=== PATIENT | male | born 1955 ===

== ENCOUNTER 2020-04-18 14:16 | Emergency (ER) | payer OTHER ==
--- OUTSIDE RECORDS SUMMARY | 2020-04-18 14:20 | XMS REPORT | Clinical Summary ---
:1955 Author Organization [facility] Address [address] [place] [id number] Care Team Providers Name Role Phone MD Parish Primary Care Provider Allergies Active Allergy Reactions Severity Noted Date Comments Iodine Hives 04/02/2016 Iodine IV it is ok if given with benadryl. Medications Medication Sig Dispensed Refills Start End Date Status Date lisinopril Take 5 mg by 0 Active (PRINIVIL,ZESTRIL) 5 mouth daily. mg tablet gabapentin Take 200 mg 0 Active (NEURONTIN) 100 mg by mouth capsule nightly. empagliflozin Take 10 mg by 0 Ac tive (JARDIANCE) 10 mg mouth daily. tablet tablet metoprolol tartrate Take 75 mg by 0 Active 75 mg tablet mouth 2 (two) times a day. pantoprazole Take 40 mg by 0 Act coretta (PROTONIX) 40 MG EC mouth daily. tablet aspirin 325 MG tablet Take 325 mg 0 Active by mouth daily. evolocumab (REPATHA) Inject 140 mg 0 Active 140 mg/mL syringe under the injection skin every 14 (fourteen) days. Every other Tuesday. Next dose due 02/29/20 ondansetron (ZOFRAN) Take 1 tablet 30 tablet 3 Active 4 MG tablet (4 mg total) 0 by mouth every 8 (eight) hours as needed for nausea or vomiting. spironolactone Take 50 mg by 0 A ctive (ALDACTONE) 50 MG mouth daily. tablet icosapent ethyL Take 1 g by 0 Ac tive (VASCEPA) 1 gram mouth 2 (two) capsule times a day. furosemide (LASIX) 40 Take 40 mg by 0 Active mg tablet mouth daily. b complex vitamins Take 1 tablet 0 Active tablet by mouth daily. lactulose 20 gram/30 Take 15 mL by 0 Active mL solution mouth 2 (two) times a day. semaglutide (OZEMPIC) Inject 0.5 mg 0 11/23 06/14 Discontinued 0.25 mg or 0.5 mg(2 under the 20 mg/1.5 mL) pen skin every 7 injector days. Tuesday furosemide (LASIX) 40 Take 20 mg by 0 07/12 Discontinued mg tablet mouth daily. 20 (Patien t Reported) insulin degludec Inject 68 0 12/05/19 Dis continued (TRESIBA FLEXTOUCH Units under 20 U-100) 100 unit/mL (3 the skin mL) insulin pen nightly. b complex vitamins (B Take 2 0 03/27/20 Discontinued COMPLEX 1) tablet tablets by 20 ( Patient mouth daily. Reporte d) metFORMIN XR Take 500 mg 0 12/05/19 Disco ntinued (GLUCOPHAGE-XR) 500 by mouth 2 20 mg 24 hr tablet (two) times a day. pitavastatin calcium Take 4 mg by 0 Discontinued (LIVALO) 4 mg tablet mouth daily. 20 buPROPion XL Take 150 mg 0 03/27/20 Disco ntinued (WELLBUTRIN XL) 150 by mouth 20 (Patient MG 24 hr tablet nightly. Repo rted) iron,carbon,gluc-FA-B Take 1 tablet 0 11/23 06/14 Discontinued 12-C-dss (FERRALET 90 by mouth 20 DUAL-IRON DELIVERY) nightly. 90-1-12-50 va-br-hgk-mg tablet icosapent ethyL Take 2 g by 0 03/27/20 Di scontinued (Vascepa) 1 gram mouth 2 (two) 20 (Patient capsule times a day. Reporte d) gdgpw-[id number]-tra-epa-fish Take by mouth 0 01/25 05/14 Discontinued oil 1,000-1,400 mg 2 (two) times 20 (Med List capsule,delayed a day. Joselin nup) release(DR/EC) traMADoL (ULTRAM) 50 Take 1 tablet 20 tablet 0 01/08 mg tabletIndications: (50 mg total) 0 20 acute pain by mouth every 6 (six) hours as needed for moderate pain for up to 20 doses .acute pain. ondansetron (Zofran) Take 1 tablet 20 tablet 0 02/22 Discontinued 4 MG tablet (4 mg total) 0 20 (Med List by mouth Cleanup) every 8 (eight) hours as needed for nausea or vomiting for up to 20 doses. ondansetron (ZOFRAN) Take 4 mg by 0 Discontinued 4 MG tablet mouth every 8 20 (Reo rder) (eight) hours as needed for nausea or vomiting. prochlorperazine Take 1 tablet 30 tablet 3 04/11/20 (COMPAZINE) 5 MG (5 mg total) 0 20 tablet by mouth every 6 (six) hours as needed for nausea or vomiting for up to 30 days. nivolumab (OPDIVO) Infuse 48 mL 48 mL 0 04/11/20 240 mg/24 mL solution (480 mg 0 20 total) into a venous catheter once for 1 dose. Active Problems Problem Noted Date Hepatocellular carcinoma 03/06/2020 Disorder of liver 01/01/2020 Other cirrhosis of liver 12/05/2019 Hepatoma 12/05/2019 Bleeding internal hemorrhoids 03/01/2019 S/P AVR 06/21/2018 Acute bacterial endocarditis 06/21/2018 Resolved Problems Problem Noted Date Resolved Date Hepatic encephalopathy 02/23/2020 02/25/2020 Encounters Date Type Specialty Care Team Description 04/16[facility]2020 [facility] 04/16/2020 Telephone Oncology Anastacia Jain RN 04/15/2020 Telephone Oncology Jean-Claude Mac MD 04/11/2020 Telephone Oncology Jean-Claude Mac MD 04/09/2020 Telephone Oncology Lucila Lua 04/08/2020 Oncology Oncology Gerri Rivera RN 04/08/2020 Telephone Oncology Jean-Claude Mac MD 04/04/2020 Orders Only Oncology Samia Marcano Cornelio 04/04/2020 Telephone Oncology Lucila Lua 04/03/2020 Telephone Oncology Lucila Lua N 04/01/2020 Telephone Oncology Lucila Lua 03/27/2020 Infusion Oncology Jean-Claude Mac Hepatocellular MD carcinoma (HCC) (Primary Dx) 03/27/2020 Oncology Oncology Champriccardoe, Hepatocellular Survivorship Elis, JAELYN carcinoma (HCC) (Primary Dx) 03/27/2020 Telephone Oncology Jean-Claude Mac MD 03/27/2020 Travel 03/27/2020 Orders Only Oncology Chintapenta, Samia, [facility] 03/26/2020 Telephone Oncology Chanell, Lucila N 03/25/2020 Telephone Oncology Chanell, Lucila N 03/25/2020 Telephone Oncology Jean-Claude Mac MD 03/24/2020 Telephone Oncology Anastacia Jain RN 03/18/2020 Orders Only Oncology Jean-Claude Mac MD 03/17/2020 Orders Only Oncology Jean-Claude Mac MD 03/17/2020 Telephone Oncology Jean-Claude Mac MD 03/17/2020 Oncology Oncology Nicole, Survivorship Elis, JAELYN 03/17/2020 Orders Only Oncology Juan Lord, [facility] 03/14/2020 Telephone Oncology Chayo Luna RN 03/13/2020 Telephone Oncology Jean-Claude Mac MD 03/13/2020 Telephone Oncology Jean-Claude Mac MD 03/13/2020 Telephone Oncology Anastacia Jain RN 03/13/2020 Oncology Oncology Gerri Rivera RN 03/11/2020 Telephone Oncology Jean-Claude Mac MD 03/07/2020 Travel 03/07/2020 Telephone Oncology Anastacia Jain RN 03/06/2020 Orders Only General Internal Jean-Claude Mac, Hepatocellu lar Walter [place] carcinoma (HCC) (Primary Dx) 03/06/2020 Documentation Medical Records Provider, Unknown 03/06/2020 Travel 03/06/2020 Orders Only Oncology Chintapenta, Hepatocellular Samia, [facility] carcinoma (HCC) (Primary Dx) 03/05/2020 Telemedicine Oncology Jean-Claude Mac, Hepatoma (HCC) (Primary Dx); Other cirrhosis of liver (HCC) 02/29/2020 Documentation Oncology Jean-Claude Mac MD 02/27/2020 Telephone Oncology Jean-Claude Mac MD 02/23/2020 Hospital Encounter General Internal Claudio Perez Hepat ic encephalopathy (HCC) (Primary Dx); - Medicine MD Xu Malignant neoplasm of liver, unspecified liver malignancy type (HCC); 02/25/2020 Verna Delirium; Orta, Blunt trauma; MD José Miguel Closed nondisplaced fracture of shaft of fourth metacarpal bone of left hand, initial encounter Cj Walsh MD 02/22/2020 Hospital Encounter Radiology Duchini, Unspecifi ed cirrhosis of liver (HCC); MD Abraham 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) 02/22/2020 Travel 02/04/2020 Oncology Oncology [facility], [facility] Elis, JAELYN 02/04/2020 Travel 02/04/2020 Transcribe Orders Access Duchini, Unspecifie d cirrhosis of liver (HCC) (Primary Dx); MD Abraham 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) 02/01/2020 Office Visit Oncology Jean-Claude Mac, Other cirrhosis of liver (HCC) (Primary Dx); Hepatoma (HCC) 02/01/2020 Travel 01/08/2020 Telephone Oncology Mercy Pollack MD 01/01/2020 Hospital Encounter Nephrology Duchini, Hepatoma (HCC) - MD Abraham 01/02/2020 Cj Walsh MD 01/01/2020 Hospital Encounter Radiology Duchini, Hepatoma (HCC) MD Abraham 01/01/2020 Travel 12/27/2019 Travel 12/27/2019 Telephone Radiology She Gonzalez RN 12/26/2019 Travel 12/25/2019 Orders Only Radiology Duchini, Hepatoma (HCC) MD Abraham (Primary Dx) 12/24/2019 Oncology Oncology [facility], [facility] Elis, JAELYN 12/24/2019 Orders Only Pharmacy Kassandra [facility] 12/21/2019 Hospital Encounter Radiology Duchini, Hepatoma (HCC) MD Abraham 12/21/2019 Hospital Encounter Radiology Duchini, Hepatoma (HCC) MD Abraham 12/21/2019 Travel 12/19/2019 Travel 12/12/2019 Travel 12/11/2019 Orders Only Radiology Duchini, Hepatoma (HCC) MD Abraham (Primary Dx) 12/11/2019 Orders Only Radiology Abraham Sargent MD 12/10/2019 Hospital Encounter Radiology Jean-Claude Mac MD 12/10/2019 Lab Lab Jean-Claude Mac Hepatoma (HCC) 12/10/2019 Hospital Encounter Radiology Jean-Claude Mac Hepatoma (HCC) 12/10/2019 Hospital Encounter Radiology Jean-Claude Mac, Hepatoma (HCC) 12/10/2019 Telephone Oncology Anastacia Jain RN 12/10/2019 Travel 12/06/2019 [facility] Elis, JAELYN 12/06/2019 Orders Only Oncology Yoselin Camp MA 12/06/2019 Orders Only Oncology Zoë, Hepatoma (HCC) MALISSA Wyatt (Primary Dx) 12/05/2019 Consult Oncology Jean-Claude Mac, Acute bacterial endocarditis (Primary Dx); Other cirrhosis of liver (HCC); Mercy Pollack S/P AVR; MD Joseph Hepatoma (HCC) 12/05/2019 Oncology Oncology Gerri Rivera, JAELYN 12/05/2019 Travel 11/30/2019 Oncology Oncology [place], JAELYN 11/28/2019 [facility] Elis, JAELYN 11/28/2019 Telephone Oncology Jean-Claude Mac MD 11/22/2019 Telephone Gastroenterology Abraham Sargent MD 11/20/2019 Hospital Encounter Radiology Rosetta Unspecifi ed MD Abraham cirrhosis of li matthew (HCC) 11/20/2019 Travel 11/13/2019 Travel 11/12/2019 Transcribe Orders Access Jorge Sargentie freedom Rosario MD cirrhosis of li matthew (HCC) (Primary Dx) 10/19/2019 Hospital Encounter Radiology Rosetta, Other abn ormal tumor markers; MD Abraham Unspecified cir rhosis of liver (HCC) 10/19/2019 Travel 09/25/2019 Travel 09/25/2019 Transcribe Orders Access Rosetta, Other abno rmal tumor markers (Primary Dx); MD Abraham Unspecified cir rhosis of liver (HCC) after 04/18/2019 Surgical History Surgery Date Site/Laterality Comments CARDIAC CATHETERIZATION CORONARY ANGIOPLASTY HERNIA REPAIR umbilical COLONOSCOPY CARDIAC CATHETERIZATION 04/02/2016 N/A Procedur e: Cv left heart cath w lv gram c ors; Surgeon: Jeremy Rey MD; Location[facility] [employer] [facility]; Service: Cardiov ascular; Laterality: N/A; REPLACEMENT, AORTIC VALVE 06/07/2018 - Chest/N/A Proced ure: REDO 06/08/2018 STERNOTOMY, REPL ACEMENT, AORTIC VALVE WIT H 23 MM [employer]ONIC AVALUS BIOPROSTHETIC HE ART VALVE; Surgeon: Donovan Dominguez MD; Lo cation: [facility] OR; Service: Cardiothoracic; Laterality: N/A; Medical devices from this surgery are in t he Implants section . REPAIR, ANEURYSM, ASCENDING 06/07/2018 - Chest/N/A Proc edure: AORTIC ANNULUS AORTA, WITH CARDIOPULMONARY 06/08/2018 CLARE NSTRUCTION WITH BOVINE BYPASS PERICARDIAL PATC H, ROOT RECONSTRUCTION W ITH 10m x 30cm [place]ASHIELD [place] GRAFT; Surgeon: Donovan Dominguez MD ; Location: [facility] OR; Service: Cardiot horacic; Laterality: N/A; Medical devices from this surgery are in t he Implants section . EXAM UNDER ANESTHESIA 03/02/2019 N/A Procedure: EXAM UNDER ANESTHESIA, SUTU RE LIGATION HEMMORI OD; Surgeon: Cleveland Keating MD; Loc ation: [facility] OR; Servic e: Colon and Rectal Surge ry; Laterality: N/A; Medical History Medical History Date Comments Hyperlipidemia Hypertension Diabetes mellitus (HCC) Heart murmur Coronary artery disease Type 2 diabetes mellitus (HCC) Cirrhosis (HCC) Depression Liver cancer (HCC) 09/2019 Family History Medical History Relation Name Comments Heart disease Father Relation Name Status Comments Father Social History Tobacco Use Types Packs/Day Years Used Date Never Smoker Smokeless Tobacco: Never Used Alcohol Use Drinks/Week oz/Week Comments No Sex Assigned at Date Recorded Male 11/28/2019 5:01 PM CDT COVID-19 Exposure Response Date Recorded In the last month, have you been in contact with No / Unsure 03/27/2020 12:59 PM CLOTH EXAMINER someone who was confirmed or suspected to have Coronavirus / COVID-19? Last Filed Vital Signs Vital Sign Reading Time Taken Comments Blood Pressure 111/59 03/27/2020 1:00 PM CLOTH EXAMINER Pulse 68 03/27/2020 1:00 PM CLOTH EXAMINER Temperature 36 C (96.8 F) 03/27/2020 1:00 PM CLOTH EXAMINER Respiratory Rate 18 03/27/2020 1:00 PM CLOTH EXAMINER Oxygen Saturation 99% 03/27/2020 1:00 PM CLOTH EXAMINER Inhaled Oxygen Concentration - - Weight 111 kg (244 lb 14.4 oz) 03/27/2020 1:00 PM CLOTH EXAMINER Height 172.7 cm (5' 8") 03/27/2020 1:00 PM CLOTH EXAMINER Body Mass Index 37.24 03/27/2020 1:00 PM CLOTH EXAMINER Plan of Treatment Date Type Specialty Care Team Description 04/24/2020 Infusion Oncology Jean-Claude Mac MD [address] [phone] 04/28/2020 Office Visit Oncology Jean-Claude Mac MD [address] [address] [phone] Health Maintenance Due Date Last Done Comments DIABETES: RETINAL EYE EXAM 09/03/1965 DIABETIC FOOT EXAM 09/03/1965 COVID-19 VACCINE (#1) 1971 COLONOSCOPY SCREENING 09/03/2005 SHINGLES VACCINES (#1) 09/03/2005 INFLUENZA VACCINE 11/24/2019 Implants Implanted Type Area Service Parts Coordinator Device Shelf Model / Identifier Expiration Serial / Lot Date Valve Avalus Model 400 Aortic 23mm - [id number] - [id number] Cardi ovascular MEDTRONIC 02/15/2019 [id number] / Implanted: Qty: 1 on 06/07/2018 by Donovan Dominguez MD at [facility] Implants STRUCTUAL [id number] / HEART [id number] Device Vasclr Clsr Baln Cath 10ml Lkng Syr 5fr Saenz My nxgrip - [id number] Cardiovascular N/A: ACCESS CLOSURE 09/22/2021 [id number] / Implanted: 12/21/2019 at [facility] (Quantity not on file) Implants N/A INC / [id number] Clip Ligtng Weck Hemoclip Plus W/ Tape Ti Med - [id number] Medic al Clips N/A: TELEFLEX 10/27/2022 [id number] / Implanted: Qty: 2 on 06/07/2018 by Donovan Dominguez MD at [facility] for Internal Use N/A MEDICAL / Clip Ligtng Weck Hemoclip Plus W/ Tape Ti Med - [id number] Medic al Clips N/A: TELEFLEX [id number] / Implanted: 06/07/2018 at [facility] (Quantity not on file) for Internal Use N/A MEDICAL / Catheter Pulmnry Dlmn 8.3fr Endovent - [id number] Surgical N/A: LOPEZ EV / Implanted: 06/07/2018 at [facility] (Quantity not on file) Imp lants; N/A LIFESCIENCES / Expanders; Extenders; Surgical Wires Kit Dev Cor-Knot - [id number] Surgical N/A: [employer] [id number] / Implanted: 06/07/2018 at [facility] (Quantity not on file) Implants; N/A / Expanders; Extenders; Surgical Wires Patch Vasclr Perph 0.8x8cm Vascu-Guard - [id number] Vascular Graft N/ A: LIANG 12/23/2022 [id number] / Implanted: Qty: 1 on 06/07/2018 by Donovan Dominguez MD at [facility] Heart BIOSCIENCE / [id number] Graft Vasclr Hemashield [place] Str Tube 2velr 30cm 1 0mm - [id number] Vascular Graft N/A: [employer] 02/22/2022 [id number] / Implanted: Qty: 1 on 06/07/2018 by Donovan Dominguez MD at [facility] Heart DAKSHA / [id number] Procedures Procedure Name Priority Date/Time Associated Diagnosis Comme nts ESTIMATED GFR STAT 03/27/2020 2:17 Results fo r PM CLOTH EXAMINER this procedure are in the results section. T4, FREE STAT 03/27/2020 2:17 Hepatocellular Results f or PM CLOTH EXAMINER carcinoma (HCC) this procedu re are in the results section. THYROID STIMULATING STAT 03/27/2020 2:17 Hepatocellular Re sults for HORMONE PM CLOTH EXAMINER carcinoma (HCC) this procedu re are in the results section. MAGNESIUM LEVEL STAT 03/27/2020 2:17 Hepatocellular Result s for PM CLOTH EXAMINER carcinoma (HCC) this procedu re are in the results section. COMPREHENSIVE METABOLIC STAT 03/27/2020 2:17 Hepatocellula r Results for PANEL PM CLOTH EXAMINER carcinoma (HCC) this procedu re are in the results section. HC COMPLETE BLD COUNT STAT 03/27/2020 2:17 Hepatocellular Results for W/AUTO DIFF PM CLOTH EXAMINER carcinoma (HCC) this procedu re are in the results section. T3, FREE STAT 03/27/2020 1:12 Hepatocellular Results f or PM CLOTH EXAMINER carcinoma (HCC) this procedu re are in the results section. ALPHA FETOPROTEIN STAT 03/27/2020 1:12 Hepatocellular Resu lts for PM CLOTH EXAMINER carcinoma (HCC) this procedu re are in the results section. TTE COMPLETE, W Routine 02/25/2020 3:13 Results for CONTRAST, W DOPPLER PM CLOTH EXAMINER this pro cedure ([id number]) are in the results section. POC GLUCOSE Routine 02/25/2020 12:10 Results for PM CLOTH EXAMINER this procedure are in the results section. POC GLUCOSE Routine 02/25/2020 9:05 Results for AM CLOTH EXAMINER this procedure are in the results section. ALPHA FETOPROTEIN Routine 02/25/2020 8:17 Result s for AM CLOTH EXAMINER this procedure are in the results section. PHOSPHORUS LEVEL Routine 02/25/2020 5:44 Results for AM CLOTH EXAMINER this procedure are in the results section. ESTIMATED GFR Routine 02/25/2020 5:44 Results fo r AM CLOTH EXAMINER this procedure are in the results section. PROTHROMBIN TIME WITH Routine 02/25/2020 5:44 Re sults for INR AM CLOTH EXAMINER this procedure are in the results section. MAGNESIUM LEVEL Routine 02/25/2020 5:44 Results for AM CLOTH EXAMINER this procedure are in the results section. HEPATIC FUNCTION PANEL Routine 02/25/2020 5:44 R esults for AM CLOTH EXAMINER this procedure are in the results section. BASIC METABOLIC PANEL Routine 02/25/2020 5:44 Re sults for AM CLOTH EXAMINER this procedure are in the results section. HC COMPLETE BLD COUNT Routine 02/25/2020 5:44 Re sults for W/AUTO DIFF AM CLOTH EXAMINER this procedure are in the results section. POC GLUCOSE Routine 02/24/2020 8:58 Results for PM CLOTH EXAMINER this procedure are in the results section. POC GLUCOSE Routine 02/24/2020 6:33 Results for PM CLOTH EXAMINER this procedure are in the results section. US ABDOMINAL DOPPLER Routine 02/24/2020 6:05 Res ults for PM CLOTH EXAMINER this procedure are in the results section. US HEPATIC Routine 02/24/2020 5:20 Results for PM CLOTH EXAMINER this procedure are in the results section. POC GLUCOSE Routine 02/24/2020 12:57 Results for PM CLOTH EXAMINER this procedure are in the results section. ESTIMATED GFR Routine 02/24/2020 4:32 Results fo r AM CLOTH EXAMINER this procedure are in the results section. B NATRIURETIC PEPTIDE Routine 02/24/2020 4:32 Re sults for AM CLOTH EXAMINER this procedure are in the results section. PHOSPHORUS LEVEL Routine 02/24/2020 4:32 Results for AM CLOTH EXAMINER this procedure are in the results section. MAGNESIUM LEVEL Routine 02/24/2020 4:32 Results for AM CLOTH EXAMINER this procedure are in the results section. COMPREHENSIVE METABOLIC Routine 02/24/2020 4:32 Results for PANEL AM CLOTH EXAMINER this procedure are in the results section. HC COMPLETE BLD COUNT Routine 02/24/2020 4:32 Re sults for W/AUTO DIFF AM CLOTH EXAMINER this procedure are in the results section. POC GLUCOSE Routine 02/23/2020 9:33 Results for PM CDT this procedure are in the results section. POC GLUCOSE Routine 02/23/2020 6:10 Results for PM CDT this procedure are in the results section. BLOOD CULTURE, AEROBIC & Routine 02/23/2020 6:00 Results for ANAEROBIC PM CDT this procedure are in the results section. URINALYSIS SCREEN AND STAT 02/23/2020 4:40 Re sults for MICROSCOPY, WITH REFLEX PM CDT this procedure TO CULTURE are in the results section. URINE CULTURE STAT 02/23/2020 4:40 Results fo r PM CDT this procedure are in the results section. POC GLUCOSE Routine 02/23/2020 4:16 Results for PM CDT this procedure are in the results section. BLOOD CULTURE, AEROBIC & Routine 02/23/2020 1:47 Results for ANAEROBIC PM CDT this procedure are in the results section. CT CERVICAL SPINE WO STAT 02/23/2020 1:41 Res ults for CONTRAST PM CDT this procedure are in the results section. CT HEAD WO CONTRAST STAT 02/23/2020 1:41 Resu lts for PM CDT this procedure are in the results section. XR CHEST 1 VW PORTABLE STAT 02/23/2020 1:15 R esults for PM CDT this procedure are in the results section. XR HAND 3+ VW LEFT STAT 02/23/2020 1:14 Resul ts for PM CDT this procedure are in the results section. XR WRIST 3+ VW LEFT STAT 02/23/2020 1:14 Resu lts for PM CDT this procedure are in the results section. COVID-19 QUALITATIVE PCR STAT 02/23/2020 12:47 Results for PM CDT this procedure are in the results section. SPLINT APPLICATION Routine 02/23/2020 12:31 Resul ts for PM CDT this procedure are in the results section. ESTIMATED GFR STAT 02/23/2020 11:47 Results fo r AM CDT this procedure are in the results section. PROTHROMBIN TIME WITH STAT 02/23/2020 11:47 Re sults for INR AM CDT this procedure are in the results section. AMMONIA LEVEL STAT 02/23/2020 11:47 Results fo r AM CDT this procedure are in the results section. LIPASE LEVEL STAT 02/23/2020 11:47 Results for AM CDT this procedure are in the results section. COMPREHENSIVE METABOLIC STAT 02/23/2020 11:47 Results for PANEL AM CDT this procedure are in the results section. HC COMPLETE BLD COUNT STAT 02/23/2020 11:47 Re sults for W/AUTO DIFF AM CDT this procedure are in the results section. ECG 12-LEAD Routine 02/23/2020 11:45 Results for AM CDT this procedure are in the results section. MRI ABDOMEN W WO Routine 02/22/2020 9:16 Unspecified cirrhosi s Results for CONTRAST AM CDT of liver (HCC) this procedure Malignant neoplasm of are in the head of pancreas results (HCC) section. ESTIMATED GFR Routine 02/22/2020 8:15 Results fo r AM CDT this procedure are in the results section. POC CREATININE Routine 02/22/2020 8:15 Results f or AM CDT this procedure are in the results section. NM SPECT LIVER IMAGING Routine 01/02/2020 2:09 Hepatoma (HCC) Results for PM CDT this procedure are in the results section. NM Y90 MICRO SPHERES Routine 01/02/2020 2:09 Hepatoma (HCC) R esults for THERAPY PM CDT this procedure are in the results section. POC GLUCOSE Routine 01/02/2020 8:04 Results for AM CDT this procedure are in the results section. ESTIMATED GFR Routine 01/02/2020 4:00 Results fo r AM CDT this procedure are in the results section. ALPHA FETOPROTEIN Routine 01/02/2020 4:00 Result s for AM CDT this procedure are in the results section. VITAMIN D 25 HYDROXY Routine 01/02/2020 4:00 Res ults for LEVEL AM CDT this procedure are in the results section. T4 Routine 01/02/2020 4:00 Results for AM CDT this procedure are in the results section. THYROID STIMULATING Routine 01/02/2020 4:00 Resu lts for HORMONE AM CDT this procedure are in the results section. HEMOGLOBIN A1C Routine 01/02/2020 4:00 Results f or AM CDT this procedure are in the results section. PROTHROMBIN TIME WITH Routine 01/02/2020 4:00 Re sults for INR AM CDT this procedure are in the results section. PHOSPHORUS LEVEL Routine 01/02/2020 4:00 Results for AM CDT this procedure are in the results section. MAGNESIUM LEVEL Routine 01/02/2020 4:00 Results for AM CDT this procedure are in the results section. COMPREHENSIVE METABOLIC Routine 01/02/2020 4:00 Results for PANEL AM CDT this procedure are in the results section. HC COMPLETE BLD COUNT Routine 01/02/2020 4:00 Re sults for W/AUTO DIFF AM CDT this procedure are in the results section. POC GLUCOSE Routine 01/01/2020 8:09 Results for PM CDT this procedure are in the results section. POC GLUCOSE Routine 01/01/2020 5:08 Results for PM CDT this procedure are in the results section. IR RADIOEMBOLIZATION Routine 01/01/2020 10:30 Hepatoma (HCC) R esults for AM CDT this procedure are in the results section. POC GLUCOSE Routine 01/01/2020 7:32 Results for AM CDT this procedure are in the results section. NM LUNG PERFUSION Routine 12/21/2019 4:05 Hepatoma (HCC) Resu lts for IMAGING PM CDT this procedure are in the results section. IR 3D RECON SLICES Routine 12/21/2019 1:15 Hepatoma (HCC) Res ults for SNAPSHOTS RDMPS PM CDT this procedu re are in the results section. IR RADIOEMBOLIZATION Routine 12/21/2019 1:15 Hepatoma (HCC) R esults for PM CDT this procedure are in the results section. PROTHROMBIN TIME WITH STAT 12/21/2019 11:22 Re sults for INR AM CDT this procedure are in the results section. CT CHEST WO CONTRAST Routine 12/10/2019 2:30 Hepatoma (HCC) R esults for PM CDT this procedure are in the results section. NM BONE SCAN WHOLE BODY Routine 12/10/2019 1:24 Hepatoma (HCC ) Results for PM CDT this procedure are in the results section. ESTIMATED GFR Routine 12/10/2019 10:25 Results fo r AM CDT this procedure are in the results section. CANCER ANTIGEN 19-9 Routine 12/10/2019 10:25 Hepatoma (HCC) Re sults for AM CDT this procedure are in the results section. ALPHA FETOPROTEIN Routine 12/10/2019 10:25 Hepatoma (HCC) Resu lts for AM CDT this procedure are in the results section. COMPREHENSIVE METABOLIC Routine 12/10/2019 10:25 Hepatoma (HCC ) Results for PANEL AM CDT this procedure are in the results section. HC COMPLETE BLD COUNT Routine 12/10/2019 10:25 Hepatoma (HCC) Results for W/AUTO DIFF AM CDT this procedure are in the results section. MRI ABDOMEN W WO Routine 11/20/2019 9:41 Unspecified cirrhosi s Results for CONTRAST AM CDT of liver (HCC) this procedur e are in the results section. CT ABDOMEN WWO CONTRAST Routine 10/19/2019 9:19 Other abnorma l tumor Results for PELVIS W CONTRAST AM CDT markers this procedure Unspecified cirrhosis are in the of liver (HCC) results section. ESTIMATED GFR Routine 10/19/2019 8:14 Results fo r AM CDT this procedure are in the results section. POC CREATININE Routine 10/19/2019 8:14 Results f or AM CDT this procedure are in the results section. after 04/18/2019 Results Estimated GFR (03/27/2020 2:17 PM CLOTH EXAMINER)Only the most recent of8 resultswithin the time period is included. Estimated GFR 63 mL/min/1.73 [facility] Comment: m2 OUTPATIENT CENTER Catergory Units Interpretation G1 >=90 Normal or high G2 60-89 Mildly decreased G3a 45-59 Mildly to moderately decreas ed G3b 30-44 Moderately to severely decre ased G4 15-29 Severely decreased G5 <15 Kidney failure The eGFR was calculated using the Chronic Kidney Disea se Epidemiology Collaboration (CKD-EPI) equation. Interpretation is based on recommendations of the National Kidney Foundation-Kidney Disease Outcomes Randolph lity Initiative (NKF-KDOQI) published in 2014. Specimen Plasma Performing Organization Address City/State/ZIP Code Phon e Number [facility] DEPARTMENT OF PATHOLOGY AND [address] [place], [place] [phone] [facility] [address] [place] [address] CBC with platelet and differential (03/27/2020 2:17 PM CLOTH EXAMINER)Only the most recent of6 resultswithin the time period is included. Pathologist Sig nature WBC 3.26 (L) 4.50 - 11.00 k/uL [facility] RBC 2.74 (L) 4.40 - 6.00 m/uL [facility] HGB 9.1 (L) 14.0 - 18.0 g/dL [facility] HCT 27.1 (L) 41.0 - 51.0 % [facility] MCV 98.9 82.0 - 100.[address] [facility] MCH 33.2 27.0 - 34.[address] [facility] MCHC 33.6 31.0 - 37.0 g/dL [facility] RDW - SD 55.2 (H) 37.0 - 55.[address] [facility] MPV 12.7 8.8 - 13.[address] [facility] Platelet count 151 150 - 400 k/uL [facility] Neutrophils 68.3 39.0 - 69.0 % [facility] Lymphocytes 16.0 (L) 25.0 - 45.0 % [facility] Monocytes 12.6 (H) 0.0 - 10.0 % [facility] Eosinophils 2.8 0.0 - 5.0 % [facility] Basophils 0.3 0.0 - 1.0 % [facility] Specimen Plasma Performing Organization Address [facility] Phon e Number [facility] DEPARTMENT OF PATHOLOGY AND [address] [place] [phone] [facility] [address] [place] [address] Thyroid stimulating hormone (03/27/2020 2:17 PM CLOTH EXAMINER)Only the most recent of2 resultswithin the time period is included. Pathologist Sig nature TSH 2.51 0.27 - 4.20 uIU/mL [facility] ITAL Specimen Plasma Performing Organization Address [facility] Phon e Number [facility] DEPARTMENT OF PATHOLOGY AND [address] [place] [address] [phone] [address] T4, free (03/27/2020 2:17 PM CLOTH EXAMINER) Pathologist Sig nature T4, free 1.4 0.9 - 1.7 ng/dL [facility] L Specimen Plasma Performing Organization Address [facility] Phon e Number [facility] DEPARTMENT OF PATHOLOGY AND [address] [place] [address] [phone] [address] Magnesium level (03/27/2020 2:17 PM CLOTH EXAMINER)Only the most recent of4 resultswithin the time period is included. Pathologist Sig nature Magnesium 2.0 1.6 - 2.4 mg/dL [facility] OUTPATI ENT CENTER Specimen Plasma Performing Organization Address City/State/ZIP Code Phon e Number [facility] DEPARTMENT OF PATHOLOGY AND [address] [place], [place] [address] [address] [facility] [address] [place] [address] Comprehensive metabolic panel (03/27/2020 2:17 PM CLOTH EXAMINER)Only the most recent of5 resultswithin the time period is included. Sodium 135 135 - 148 [facility] mEq/L OUTPATIENT CENTER Potassium 5.2 (H) 3.5 - 5.0 [facility] mEq/L [facility] [place] Chloride 108 98 - 112 [facility] mEq/L [facility] [place] CO2 19 (L) 24 - 31 mEq/L [facility] Anion gap 8@ANIO 7 - 15 mEq/L [facility] BUN 42 (H) 8 - 23 mg/dL [facility] Creatinine 1.20 0.70 - 1.20 [facility] mg/dL OUTPATIENT CENTER Glucose 259 (H) 65 - 99 mg/dL [facility] Calcium 9.0 8.8 - 10.2 [facility] mg/dL OUTPATIENT CENTER Protein 6.5 6.3 - 8.3 [facility] Comment: g/dL OUTPATIENT CENTER - [place] 4.6-7.0 g/dL 1 week 4.4-7.6 g/dL 7 months-1year 5.1-7.3 g/dL 1-2 years 5.6-7.5 g/dL >3 years 6.0-8.0 g/dL 18-150 6.3-8.3 g/dL Albumin 2.9 (L) 3.5 - 5.0 [facility] g/dL OUTPATIENT CENTER A/G ratio 0.8 0.7 - 3.[address] [facility] Alkaline phosphatase 363 (H) 40 - 129 U/L [facility] AST 127 (H) 10 - 50 U/L [facility] ALT 74 (H) 5 - 50 U/L [facility] Total bilirubin 2.0 (H) 0.0 - 1.2 [facility] mg/dL OUTPATIENT CENTER Specimen Plasma Performing Organization Address [facility] Phon e Number [facility] DEPARTMENT OF PATHOLOGY AND [address] [phone] [facility] OUTPATIENT CENTER [address] [place] [address] Alpha fetoprotein (03/27/2020 1:12 PM CLOTH EXAMINER)Only the most recent of4 results within the time period is included. Alpha fetoprotein 47,857.0 (H) 0.0 - 8.3 [facility] Comment: ng/mL [employer] The Dylan 8000 AFP immunoassay was used. HOSPITAL Results obtained with different assay methods or kits should not be used interchangeably and may be differen t. Specimen Serum Performing Organization Address [facility] Phon e Number [facility] DEPARTMENT OF PATHOLOGY AND [address] [place], [place] [address] [facility] [address] [place] [address] T3, free (03/27/2020 1:12 PM CLOTH EXAMINER) Pathologist Sig nature T3, free 2.3 (L) 2.4 - 4.2 pg/mL [facility] Comment: REFERENCE INTERVAL: Triiodothyronine, Free (Free T3) Access complete set of age- and/or gender-specific ref erence intervals for this test in the [facility] Test Di rectory ([employer]). Performed By: [facility] [address] [place] [address] Engagement Specialist: Chastity Pantoja MD Specimen Serum Performing Organization Address City/[facility] Phon e Number [facility] [address] [place] [address] [facility] [address] [place] [address] Transthoracic Echocardiogram Complete, (w Contrast, Strain and 3D if needed) (02/25/2020 3:13 PM CLOTH EXAMINER) Specimen Narrative Performed At [facility] Echo cardiography Report [id number] [facility] [address] [address] Pat.Name: SILVESTRE SCHMID Pat.ID: [id number]Date: 02/25/2020 Refer.MD: JEREMY REY MD Exam Time: 2:15:00 PM Study Type:R outine Echo Height: 70in Weight: 238lb BSA: 2.25 m2 Ag e: 1955,64Y Sex: MALE BP: 121/57 HR: 66 bpm Sonogr phr: Dorothy Alcantar, RCS, RVS Pat. Stat.:Inpatient Room: [place] [address] Study Status:Final Echo Event ID:[id number] Order ID: [id number] Reason for Study:HF - Re-eval of known H F (systolic or diastolic) with a change in clinical status or cardiac e xam without a clear precipitating change in medication or di et; Ventricular Function - Routine surveillance of ventricular func tion with known CAD an no change in clinical status or cardiac exa m History / Clinical:Coronary Artery Disea se, Diabetes, Hyperlipidemia, Hypertension Procedures: 2D Echo, Colorflow Doppler, Portable, Intravenous Optison Contrast Race: C SUMMARY: LV EF is normal. Estimated EF is 60-64%. RV systolic function is normal. Normal prosthetic aortic valve velocity and gradient. LV filling pressures are elevated. FINDINGS: LV: LV size is normal. LV EF is normal. Overall wall motion is normal. Estimated EF is 6 0-64%. RV: RV size is mildly enlarged. RV systolic function is normal. LA: LA volume is mild to modera tely enlarged. RA: RA size is normal. AO: Aortic root diameter is nor mal. STEVEN: No pericardial effusion. AV: Bioprosthetic aortic valve. A trace of ao rtic regurgitation. Normal prosthetic valve v elocity and gradient. Surgical Prosthetic AV Doppler velocity index is 0.43 (normal>0.25). MV: No structural MV abnormalit ies noted. A trace of mitral regurgitation. PV: No structural PV abnormalit ies noted. TV: No structural TV abnormalit ies noted. Mild tricuspid regurgitation Luke: LV filling pressure is eleva mil. Other: Insufficient TR jet to estim ate PA systolic pressure. MEASUREMENTS: 2D Parasternal [place] Ao An 2.2 cm LVPWd 0.97 cm Ao Rtd 3.1 cm Index 1.4 cm/m2 LA Ds 4 cm IVSd 0.9 cm RWT 0.38 LVIDd 5.1 cm Index 2.3 cm/m2 LV Mass 170 g (122-1 74) LVIDs 2.9 cm LVM In dex 75 g/m LV%fs 43 % LVOT 1.9 cm LA Sng Plane LA Area 27 cm (8.8-23.4)* LA Vol 93 ml Index 41 ml/m2 LA LngAx 6.3 cm RA Sng Plane RA Vol 58 ml Index 26 ml/m2 RA LngAx 6.1 cm RA Area 20 cm (8.3-1 9.5)* LVOT For Flow LVOT Area 2.9 cm DOPPLER AV For Flow/LILIA AV pkVel 279 cm/s (100-170)* AV TVI 65 cm AV mnVel 210 cm/s AVpkAcRt 8501 cm/s AV pkPG 31 mmHg AV DeRt 896 cm/s AV Mean G 21 mmHg AV Area 1.2 cm (3-5)* AV ET 312 msec AV AC 142 msec (83-118 )* AV AC/ET 0.45 Aortic Valve AV DI 0.43 LVOT For Flow LVOT TVI 28 cm LVOT CI 2.4 l/m/m LVOT SV 81 ml LVOTpkP G 5.2 mmHg LVOTpkVel 114 cm/s LVOTmnPG 3.7 mmHg LVOT CO 5.4 l/min HR 67 bpm LVOT SVi 36 ml/m Signed 02/25/2020 05:02 PM Sal Solorio MD Procedure Note Interface, Radiology Results In - 2019 5:03 PM [facility] Echocardiography Report [address] [address] Pat.Name: SILVESTRE SCHMID Pat.I D: [id number] St.Date: 02/25/2020 Refer .MD: JEREMY REY MD Exam Time: 2:15:00 PM Study Type:Routine Echo Height: 70in Weigh t: 238lb BSA: 2.25 m2 Age: 5 1955,64Y Sex: MALE BP: 121/57 HR: 66 bpm Sonog rphr: CATARINA Haque, RVS Pat. Stat.:Inpatient Room: [place] [address] Study Status:Final Echo Event ID:[id number] Order ID: [id number] Reason for Study:HF - Re-eval of known H F (systolic or diastolic) with a change in clinical status or cardiac e xam without a clear precipitating change in medication or di et; Ventricular Function - Routine surveillance of ventricular func tion with known CAD an no change in clinical status or cardiac exa m History / Clinical:Coronary Artery Disea se, Diabetes, Hyperlipidemia, Hypertension Procedures: 2D Echo, Colorflow Doppler, Portable, Intravenous Optison Contrast Race: C SUMMARY: LV EF is normal. Estimated EF is 60-64%. RV systolic function is normal. Normal prosthetic aortic valve velocity and gradient. LV filling pressures are elevated. FINDINGS: LV: LV size is normal. LV EF is no rmal. Overall wall motion is normal. Estimated EF is 60-64% . RV: RV size is mildly enlarged. RV systolic function is normal. LA: LA volume is mild to moderatel y enlarged. RA: RA size is normal. AO: Aortic root diameter is normal . STEVEN: No pericardial effusion. AV: Bioprosthetic aortic valve. A trace of aortic regurgitation. Normal prosthetic valve veloci ty and gradient. Surgical Prosthetic AV Doppler velocity index is 0.43 (normal>0.25). MV: No structural MV abnormalities noted. A trace of mitral regurgitation. PV: No structural PV abnormalities noted. TV: No structural TV abnormalities noted. Mild tricuspid regurgitation Luke: LV filling pressure is elevate d. Other: Insufficient TR jet to estimat e PA systolic pressure. MEASUREMENTS: 2D Parasternal [place] Ao An 2.2 cm LVPW d 0.97 cm Ao Rtd 3.1 cm Inde x 1.4 cm/m2 LA Ds 4 cm IVSd 0.9 cm RWT 0.38 LVIDd 5.1 cm Inde x 2.3 cm/m2 LV Mass 170 g (122-174) LVIDs 2.9 cm LVM Index 75 g/m LV%fs 43 % LVOT 1.9 cm LA Sng Plane LA Area 27 cm (8.8-23.4)* LA Vol 93 ml Index 41 ml/m2 LA LngAx 6.3 cm RA Sng Plane RA Vol 58 ml Inde x 26 ml/m2 RA LngAx 6.1 cm RA Area 20 cm (8.3-19.5)* LVOT For Flow LVOT Area 2.9 cm DOPPLER AV For Flow/LILIA AV pkVel 279 cm/s (100-170)* AV TVI 65 cm AV mnVel 210 cm/s AVpk AcRt 8501 cm/s AV pkPG 31 mmHg AV D eRt 896 cm/s AV Mean G 21 mmHg AV A juventino 1.2 cm (3-5)* AV ET 312 msec AV AC 142 msec (83-118)* AV AC/ET 0.45 Aortic Valve AV DI 0.43 LVOT For Flow LVOT TVI 28 cm LVOT CI 2.4 l/m/m LVOT SV 81 ml LVOT pkPG 5.2 mmHg LVOTpkVel 114 cm/s LVOT mnPG 3.7 mmHg LVOT CO 5.4 l/min HR 67 bpm LVOT SVi 36 ml/m Signed 02/25/2020 05:02 PM Sal Solorio MD Performing Organization Address [facility] Phon [facility] [address] [place] [address] POC glucose (02/25/2020 12:10 PM CLOTH EXAMINER)Only the most recent of12 resultswithin the time period is included. Pathologist Sig nature POC glucose 162 (H) 65 - 99 mg/dL [facility] Comment: HOSPITAL Dovetailer Name: Julianne Grimes Device ID: [id number] Chartable: [facility] Notified RN Specimen Blood Performing Organization Address [facility] Phon e Number [facility] DEPARTMENT OF PATHOLOGY AND [address] [place] [address] [phone] [address] Prothrombin time with INR (02/25/2020 5:44 AM CLOTH EXAMINER)Only the most recent of4 resultswithin the time period is included. Pathologist [facility] Prothrombin time 15.3 (H) 11.5 - 14.5 [facility] INR 1.2 [facility] Comment: [facility] [place] [place] International Normalized Ratio (INR) is a [facility] HOSPITAL monitoring tool for patients who are stable on oral anticoagulant therapy. An INR of 2.0-3.0 is suggested for deep vein thrombosis/pulmonary embolism. Specimen Blood Performing Organization Address [facility] Phon e Number [facility] DEPARTMENT OF PATHOLOGY AND [address] [place] [phone] Phosphorus level (02/25/2020 5:44 AM CLOTH EXAMINER)Only the most recent of3 resultswithin the time period is included. Pathologist Sig nature Phosphorus 3.7 2.4 - 4.5 mg/dL [facility] L Specimen Plasma Performing Organization Address [facility] Phon e Number [facility] DEPARTMENT OF PATHOLOGY AND [address] [place] [address] [phone] [address] Hepatic function panel (02/25/2020 5:44 AM CLOTH EXAMINER) Albumin 2.9 (L) 3.5 - 5.0 [facility] g/dL HOSPITAL Total bilirubin 2.1 (H) 0.0 - 1.2 [facility] mg/dL HOSPITAL Bilirubin direct 1.0 (H) 0.0 - 0.3 [facility] mg/dL [facility] Alkaline phosphatase 290 (H) 40 - 129 U/L [facility] Protein 6.6 6.3 - 8.3 [facility] Comment: g/dL HOSPITAL - 4.6-7.0 g/dL 1 week 4.4-7.6 g/dL 7 months-1year 5.1-7.3 g/dL 1-2 years 5.6-7.5 g/dL >3 years 6.0-8.0 g/dL 18-150 6.3-8.3 g/dL ALT 71 (H) 5 - 50 U/L [facility] AST 105 (H) 10 - 50 U/L [facility] Specimen Plasma Performing Organization Address City/[facility] Phon e Number [facility] DEPARTMENT OF PATHOLOGY AND [address] [place], [place] [phone] [address] [address] Basic metabolic panel (02/25/2020 5:44 AM CLOTH EXAMINER) Pathologist Sig nature Sodium 139 135 - 148 mEq/L [facility] Potassium 4.6 3.5 - 5.0 mEq/L [facility] Chloride 105 98 - 112 mEq/L [facility] CO2 22 (L) 24 - 31 mEq/L [facility] Anion gap 12@ANIO 7 - 15 mEq/L [facility] BUN 27 (H) 8 - 23 mg/dL [facility] Creatinine 1.27 (H) 0.70 - 1.20 mg/dL [facility] Glucose 127 (H) 65 - 99 mg/dL [facility] Calcium 9.2 8.8 - 10.2 mg/dL [facility] Specimen Plasma Performing Organization Address City/[facility] Phon e Number [facility] DEPARTMENT OF PATHOLOGY AND [address] [place] [address] [phone] [address] [place] Abdominal Doppler (02/24/2020 6:05 PM CLOTH EXAMINER) Specimen Narrative Performed At EXAMINATION: US ABDOMINAL DOPPLER [facility] CLINICAL HISTORY: Portal vein thrombos is, Elevated LFT COMPARISON: Hepatic ultrasound. MRI ab domen 02/22/2020 radiology TECHNIQUE: Saenz scale, color Doppler and spectral wave form analysis of the hepatic vasculature. IMPRESSION: 1. PORTAL VEINS: *Main portal vein: The main portal vein is patent. Por nina vein velocity is 19.2 cm/sec. *Left Portal Vein: The left portal vein is patent. *Right Portal Vein:Thrombosed, better se en on recent MRI. 2. HEPATIC VEINS: *Right Hepatic Vein: The right hepatic v ein is patent. *Middle Hepatic Vein: The middle hepatic vein is patent. *Left Hepatic Vein: The left hepatic vei n is patent. 3. HEPATIC ARTERIES: *Right Hepatic Artery: The right hepatic artery is patent. *Left Hepatic Artery: The left hepatic a rtery is patent. 4. IVC: The inferior vena cava is patent . 5. SMV: Not well visualized 6. SPLENIC ARTERY/VEINS: *Splenic Artery/Vein at Spleen: The splenic artery/vei n at the spleen are patent. *Splenic Artery/Vein at Midline: Question partial occl usion of the splenic vein at the midline. Splenic art gadiel is patent. Procedure Note Interface, Radiology Results Incoming - 02/24/2020 9:04 PM CLOTH EXAMINER EXAMINATION: US ABDOMINAL DOPPLER CLINICAL HISTORY: Portal vein thrombosi s, Elevated LFT COMPARISON: Hepatic ultrasound. MRI [facility] 02/22/2020 radiology TECHNIQUE: Saenz scale, color Doppler and spectral waveform analysis of the hepatic vasculature. IMPRESSION: 1. PORTAL VEINS: *Main portal vein: The main portal vein is patent. Portal vein velocity is 19.2 cm/sec. *Left Portal Vein: The left portal vein is patent. *Right Portal Vein:Thrombosed, better se en on recent MRI. 2. HEPATIC VEINS: *Right Hepatic Vein: The right hepatic v ein is patent. *Middle Hepatic Vein: The middle hepatic vein is patent. *Left Hepatic Vein: The left hepatic vei n is patent. 3. HEPATIC ARTERIES: *Right Hepatic Artery: The right hepatic artery is patent. *Left Hepatic Artery: The left hepatic a rtery is patent. 4. IVC: The inferior vena cava is patent . 5. SMV: Not well visualized 6. SPLENIC ARTERY/VEINS: *Splenic Artery/Vein at Spleen: The sple chandrika artery/vein at the spleen are patent. *Splenic Artery/Vein at Midline: Questio n partial occlusion of the splenic vein at the midline. Splenic artery is patent. Performing Organization Address City/State/ZIP Code Phon e Number [facility] [address] [place] [address] [place] Hepatic (02/24/2020 5:20 PM CLOTH EXAMINER) Specimen Narrative Performed At EXAMINATION: US HEPATIC [facility] HISTORY: 64 years old Male. Cirrhosis, e levated LFT. COMPARISON: MRI abdomen 02/22/2020 FINDINGS: Liver: Nodular liver contour. Heterogeneous parenchy mal echogenicity coarsened hepatic echotexture. There are no focal hepa tic lesions. There is no surface nodularity. Bile ducts: Common duct is not well visu alized. Gallbladder: Normal in size. Wall thickness is 4.9 m m. No gallbladder stones. No pericholecystic fluid. Sonographic Owen 's sign is not reported Vasculature: Hepatopedal flow within the portal vein s. Thrombosis of the right portal vein, similar to recent MRI. Right kidney: No hydronephrosis in the visualized port ions of the right kidney. IMPRESSION: 1. Nodular, cirrhotic liver. 2. Thrombosis of the right portal vein, similar to recent MRI. 3. Mild gallbladder wall thickening, likely reactive i n the setting of chronic liver disease. [facility]-[id number] Procedure Note Interface, Radiology Results Incoming - 02/24/2020 8:48 PM CLOTH EXAMINER EXAMINATION: US HEPATIC HISTORY: 64 years old Male. Cirrhosis, e levated LFT. COMPARISON: MRI abdomen 02/22/2020 FINDINGS: Liver: Nodular liver contour. Heterogen eous parenchymal echogenicity coarsened hepatic echotexture. There are no focal hepatic lesions. There is no surface nodularity. Bile ducts: Common duct is not well visu alized. Gallbladder: Normal in size. Wall thick ness is 4.9 mm. No gallbladder stones. No pericholecystic fluid. Sonographic Owen's sign is not reported Vasculature: Hepatopedal flow within th e portal veins. Thrombosis of the right portal vein, similar to recent MRI. Right kidney: No hydronephrosis in the v isualized portions of the right kidney. IMPRESSION: 1. Nodular, cirrhotic liver. 2. Thrombosis of the right portal vein, similar to recent MRI. 3. Mild gallbladder wall thickening, lik catherine reactive in the setting of chronic liver disease. [facility]-[id number] Performing Organization Address City/[facility]/ZIP Code Phon e Number [facility] [address] [place] [phone] B natriuretic peptide (02/24/2020 4:32 AM CLOTH EXAMINER) Pathologist Sig nature BNP 379 (H) 0 - 100 pg/mL [facility] Specimen Blood Performing Organization Address City/[facility]/ZIP Code Phon e Number [facility] DEPARTMENT OF PATHOLOGY AND [address] [place] [address] [phone] [address] Blood culture, aerobic & anaerobic (02/23/2020 6:00 PM CDT)Only the most recent of2 resultswithin the time period is included. Blood culture No growth after 5 days of incubation. [facility] isolate Comment: HOSPITAL Specimen Information Specimen Source: Blood Specimen Site: right wrist Specimen Blood Performing Organization Address [facility] Phon e Number [facility] DEPARTMENT OF PATHOLOGY AND [address] [place] [address] [phone] [address] Urinalysis screen and microscopy, with reflex to culture (02/23/2020 4:40 PM CDT) Specimen site Clean catch [facility] Color, UA Linda [facility] Appearance, UA Clear [facility] Specific gravity, UA 1.024 1.001 - 1.035 [facility] pH, UA 7.0 5.0 - 8.5 [facility] Protein, UA Negative Negative [facility] Glucose, UA Negative Negative [facility] Ketones, UA Negative Negative [facility] Bilirubin, UA Negative Negative [facility] Blood, UA Negative Negative [facility] Nitrite, UA Negative Negative [facility] Urobilinogen, UA 4.0 (A) <2.0 [facility] Leukocyte esterase, Negative Negative [facility] Epithelial cells, UA <1 /HPF [facility] WBC, UA <1 0 - 1 /HPF [facility] RBC, UA 1 0 - 5 /HPF [facility] Bacteria, UA None seen None seen [facility] Yeast, UA None seen [facility] Yeast with None seen [facility] pseudohyphae, HOSPITAL Specimen Urine Performing Organization Address [facility] Phon e Number [facility] DEPARTMENT OF PATHOLOGY AND [address] [place], [place] [address] [facility] [address] [place] [address] Urine culture (02/23/2020 4:40 PM CDT) Pathologist Sig nature Urine culture SEE COMMENTComment: [facility] Bacteriuria screen HOSPITAL negative. Specimen Performing Organization Address [facility] Phon e Number [facility] DEPARTMENT OF PATHOLOGY AND [address] [place], [place] [address] [facility] [address] [place] [address] CT Cervical Spine Wo Contrast (02/23/2020 1:41 PM CDT) Specimen Narrative Performed At EXAMINATION: CT CERVICAL SPINE WO CONTRA ST [facility] CLINICAL HISTORY: fall ams COMPARISON: None TECHNIQUE: Axial noncontrast enhanced images of the ce rvical spine were obtained with coronal and sagittal recon structed algorithms. CT imaging was performed with iterative reconstruction techniques and/or automated exposure control to reduce rad iation dose. FINDINGS: No fracture or acute subluxation is iden tified. The paraspinous soft tissues are unremar kable. Mild multilevel cervical spondylosis is noted. There i s ankylosis of C2-3. Moderate foraminal stenosis is not ed in the left at C6-7. No incidental thyroid lesion is identifi ed. IMPRESSION: No acute abnormality of the cervical spi ne is identified. [facility]-[id number] Procedure Note Interface, Radiology Results Incoming - 02/23/2020 1:49 PM CDT EXAMINATION: CT CERVICAL SPINE WO CONTRAST CLINICAL HISTORY: fall ams COMPARISON: None TECHNIQUE: Axial noncontrast enhanced im ages of the cervical spine were obtained with coronal and sagittal reconstructed algorithms. CT imaging was performed with iterative reconstruction techniques and/or automated exposure control to reduce radiation dose. FINDINGS: No fracture or acute subluxation is iden tified. The paraspinous soft tissues are unremar kable. Mild multilevel cervical spondylosis is noted. There is ankylosis of C2-3. Moderate foraminal stenosis is noted in the left at C6-7. No incidental thyroid lesion is identifi ed. IMPRESSION: No acute abnormality of the cervical spi ne is identified. [facility]-[id number] Performing Organization Address [facility] Phon e Number [facility] [address] [place] [address] CT Head Wo Contrast (02/23/2020 1:41 PM CDT) Specimen Narrative Performed At EXAMINATION: CT HEAD WO CONTRAST [facility] CLINICAL HISTORY: fall ams COMPARISON: None TECHNIQUE: Noncontrast CT of the brain was performed f rom the skull base to the vertex. Both soft tissue and bone reconstructio n algorithms are interpreted. CT imaging was performed with iterative reconstruction techniques and/or automated exposure control to reduce rad iation dose. FINDINGS: No intracranial hemorrhage, extra-axial collection, or mass-effect is seen. No acute cortical infarct is identified. No hy perdense vessel is seen. No fracture is seen. No air-fluid level is seen in the visualized portions of the paranasal sinuses. Mastoid air cells are clear. IMPRESSION: No acute intracranial abnormality identi fied. [facility]-[id number] Procedure Note Interface, Radiology Results Incoming - 02/23/2020 1:47 PM CDT EXAMINATION: CT HEAD WO CONTRAST CLINICAL HISTORY: fall ams COMPARISON: None TECHNIQUE: Noncontrast CT of the brain w as performed from the skull base to the vertex. Both soft tissue and bone reconstruction algorithms are interpreted. CT imaging was performed with iterative reconstruction techniques and/or automated exposure control to reduce radiation dose. FINDINGS: No intracranial hemorrhage, extra-axial collection, or mass-effect is seen. No acute cortical infarct is identified. No hyperdense vessel is seen. No fracture is seen. No air-fluid level is seen in the visual ized portions of the paranasal sinuses. Mastoid air cells are clear. IMPRESSION: No acute intracranial abnormality identi fied. [facility]-[id number] Performing Organization Address City/[facility] Code Phon e Number [facility] [address] [place] [address] XR Chest 1 Vw Portable (02/23/2020 1:15 PM CDT) Specimen Narrative Performed At EXAMINATION: XR CHEST 1 VW PORTABLE [facility] CLINICAL HISTORY: ams COMPARISON: 06/12/2079 IMPRESSION: Heart size is enlarged. The patient has undergone medi an sternotomy. Bilateral perihilar opacities are reflective of pulmon savannah edema. A tiny right-sided pleural effusion is suspected. There is no significant left pleural effusion. There is no pneumothorax. No acute osseous abnormality is present. Degenerative changes are present in the right shoulde r. [facility]-[id number] Procedure Note Interface, Radiology Results Incoming - 02/23/2020 1:24 PM CDT EXAMINATION: XR CHEST 1 VW PORTABLE CLINICAL HISTORY: ams COMPARISON: 06/12/2079 IMPRESSION: Heart size is enlarged. The patient has undergone median sternotomy. Bilateral perihilar opacities are reflective of pulmonary edema. A tiny right-sided pleural effusion is suspected. There is no significant left pleural effusion. There is no pneumothorax. No acute osseous abnormali ty is present. Degenerative changes are present in the right shoulder. [facility]-[id number] Performing Organization Address City/State/ZIP Code Phon e Number [facility] [address] [place] [address] XR Hand 3+ Vw Left (02/23/2020 1:14 PM CDT) Specimen Narrative Performed At EXAMINATIONS: [facility] XR WRIST 3 VW LEFT XR HAND 3 VW LEFT CLINICAL HISTORY: fall swelling COMPARISON: None available. FINDINGS: 1. Radiographs of the left wrist and left hand are sub mitted for interpretation. 2. Approximately age and gender appropriate mineraliza tion of the osseous structures. 3. Normal alignment of the left wrist without acute fr acture or dislocation. 4. Mild irregularity at the base of the fourth metacar pal this could represent a nondisplaced fracture. There is soft tissu e swelling of dorsum of the hand. Correlation with point tenderness and advanced imaging may be indicated. 5. No focal soft tissue abnormality. IMPRESSION: Possible nondisplaced fracture the base of the fourth metacarpal. [id number] Procedure Note Interface, Radiology Results Incoming - 02/23/2020 1:46 PM CDT EXAMINATIONS: XR WRIST 3 VW LEFT XR HAND 3 VW LEFT CLINICAL HISTORY: fall swelling COMPARISON: None available. FINDINGS: 1. Radiographs of the left wrist and lef t hand are submitted for interpretation. 2. Approximately age and gender appropri ate mineralization of the osseous structures. 3. Normal alignment of the left wrist wi thout acute fracture or dislocation. 4. Mild irregularity at the base of the fourth metacarpal this could represent a nondisplaced fracture. There is soft tissue swelling of dorsum of the hand. Correlation with point tenderness and advanced imaging may be indicated. 5. No focal soft tissue abnormality. IMPRESSION: Possible nondisplaced fracture the base of the fourth metacarpal. [id number] Performing Organization Address [facility]/ZIP Code Phon e Number [facility] [address] [place] [address] XR Wrist 3+ Vw Left (02/23/2020 1:14 PM CDT) Specimen Narrative Performed At EXAMINATIONS: HM [facility] XR WRIST 3 VW LEFT XR HAND 3 VW LEFT CLINICAL HISTORY: fall swelling COMPARISON: None available. FINDINGS: 1. Radiographs of the left wrist and left hand are sub mitted for interpretation. 2. Approximately age and gender appropriate mineraliza tion of the osseous structures. 3. Normal alignment of the left wrist without acute fr acture or dislocation. 4. Mild irregularity at the base of the fourth metacar pal this could represent a nondisplaced fracture. There is soft tissu e swelling of dorsum of the hand. Correlation with point tenderness and advanced imaging may be indicated. 5. No focal soft tissue abnormality. IMPRESSION: Possible nondisplaced fracture the base of the fourth metacarpal. [id number] Procedure Note Interface, Radiology Results Incoming - 02/23/2020 1:46 PM CDT EXAMINATIONS: XR WRIST 3 VW LEFT XR HAND 3 VW LEFT CLINICAL HISTORY: fall swelling COMPARISON: None available. FINDINGS: 1. Radiographs of the left wrist and lef t hand are submitted for interpretation. 2. Approximately age and gender appropri ate mineralization of the osseous structures. 3. Normal alignment of the left wrist wi thout acute fracture or dislocation. 4. Mild irregularity at the base of the fourth metacarpal this could represent a nondisplaced fracture. There is soft tissue swelling of dorsum of the hand. Correlation with point tenderness and advanced imaging may be indicated. 5. No focal soft tissue abnormality. IMPRESSION: Possible nondisplaced fracture the base of the fourth metacarpal. [id number] Performing Organization Address [facility]/ZIP Code Phon e Number [facility] [address] [place] [address] COVID-19 qualitative PCR (02/23/2020 12:47 PM CDT) Interpretation Negative results do not prec lude 2019-nCoV infection and should not be used as the sole basis for treatment or other patient management decisions. Negative results must be combined with clinical observations, patient history, and epidemiological VIEQUES information. [facility] COVID-19 qualitative Not-Detected Not-Detecte VIEQUES PCR result d [facility] COVID-19 qualitative See link below for VIEQUES PCR PDF Lab [facility] ReportComment: Case HOSPITAL Number: [id number] Specimen Nasopharyngeal swab Performing Organization Address [facility] Phon e Number [facility] DEPARTMENT OF PATHOLOGY AND [address] [place], [place] [address] [address] [address] [facility] Splint Application (02/23/2020 12:31 PM CDT) Narrative Performed At Claudio Perez MD 03/12/2020 8:35 AM Splint Application Performed by: Claudio Perez MD Authorized by: Claudio Perez MD Consent: Consent obtained: Verbal Consent given by: Patient Risks discussed: Skin discoloration , distal paresthesia, pain and swelling Alternatives discussed: No treatmen t Pre-procedure details: Sensation: Normal Procedure details: Laterality: Left Location: Hand Hand: L hand Cast type: Short arm Splint type: static. Supplies: Ortho-Glass Post-procedure details: Pain: Improved Sensation: Normal Patient tolerance of procedure: Jr erated well, no immediate complications Lipase level (02/23/2020 11:47 AM CDT) Pathologist Sig nature Lipase 52 13 - 60 U/L [facility] Specimen Plasma Performing Organization Address [facility] Phon e Number [facility] DEPARTMENT OF PATHOLOGY AND [address] [place] [address] [phone] [address] Ammonia level (02/23/2020 11:47 AM CDT) Pathologist Sig nature Ammonia 92 (H) 16 - 60 umol/L [facility] Specimen Blood Performing Organization Address City/[facility] Phon e Number [facility] DEPARTMENT OF PATHOLOGY AND [address] [place] [address] [phone] [address] ECG 12 lead (02/23/2020 11:45 AM CDT) Pathologist Sig nature Ventricular rate 66 [facility] Atrial rate 66 [facility] MN interval 188 [facility] QRSD interval 78 [facility] QT interval 452 [facility] QTC interval 473 [facility] P axis 1 46 [facility] QRS axis 1 57 [facility] T wave axis 5 [facility] MUSE EKG impression Sinus rhythm with occasional premature ventricular complexes- Nonspecific T wave abnormality-Prolonged QT-Abnormal ECG-In automated comparison with ECG of 01-MAR-2019 23:41,-premature ventricular complex [facility] MUSE es are now present-Nonspecific T wave abnormality now evident in Anterior lead s- Specimen Narrative Performed At This result has an attachment that is no t available. Performing Organization Address City/State/ZIP Code Phon e Number [facility] MUSE [address] [place] [address] MRI Abdomen W Wo Contrast (02/22/2020 9:16 AM CDT)Only the most recent of2 resultswithin the time period is included. Specimen Narrative Performed At This result has an attachment that is no t available. EXAMINATION: MRI ABDOMEN W WO CONTRAST [facility] HISTORY: K74.60 Unspecified cirrhosis of liver, C25.0 Malignant neoplasm of head of pancreas, K74.60 UNSPECIFIED CIRRHOSIS OF LIVER C25.0 MALIGNANT NEOPLASM OF HEAD OF PANCREAS TECHNIQUE: Multiplanar MR examination of the abdomen was performed before and after administration of intravenous contrast with multiphase acquisitions according to standard protocol. COMPARISON: None. FINDINGS: Liver: Cirrhotic morphology. A geographi c hyperenhancement throughout the anterior section of the right liver lobe, compatible with expected post radiotherapy change. Postcontrast images are degraded by motion, limiting evaluation. Treated lesion in liver segment 8 has likely decreased in size, approximately 2.5 x 2.1 cm previously 3.9 x 3.0 cm (series 370, image 461). No clear evidence of enhancing or diffusion restricting disease. Biliary Tree: Unchanged mildly ectatic p eripheral bile ducts in the right anterior liver segment adjacent to the treated lesion. No new biliary ductal dilatation. Gallbladder is unremarkable. Pancreas: Unremarkable. No ductal dilatation. Spleen: Unchanged enlargement, 15 cm craniocaudal. Adrenal: Unremarkable. Kidneys: The kidneys enhance symmetrical ly. There are multiple non-enhancing cystic lesions within the renal parenchyma consistent with benign cysts. No hydronephrosis or solid mass. Bowel: Unremarkable. Lymph nodes: Unchanged prominent peripor nina lymph nodes, the largest between the pancreatic head and portal vein 1.6 in short axis (36/23). No new lymphadenopathy. Vessels: Early opacification of the righ t middle vein, indicative of some degree of systemic shunting. Right unchanged right portal vein thrombosis. Left portal vein remains patent. Unchanged mild narrowing of the main portal vein. Hepatic veins and splenic vein patent .Prominent splenorenal shunt measu ring up to 2.1 cm. Skeleton: S/p median sternotomy.There ar e multilevel degenerative spinal changes. No suspicious osseous lesion. Other: Trace volume of free intraperiton eal fluid in the upper abdomen. Small right pleural effusion. IMPRESSION: 1.S/p Y-90 of segment 8 with right branc h portal vein invasion. Mass appears smaller without clear evidence of residual disease. No new suspicious liver lesion. 2.Unchanged complete right portal vein a nd partial common portal vein thrombosis. No discrete tumor thrombus visualized. 3.Unchanged prominent periportal/peripancreatic lymph nodes. No new adenopathy. 4.Unchanged splenomegaly and prominent splenorenal neris nt. 5.Increased small volume ascites and small right pleur al effusion. [id number] Procedure Note Hm Interface, Radiology Results 02/22/2020 10:31 AM CDT EXAMINATION: MRI ABDOMEN W WO CONTRAST HISTORY: K74.60 Unspecified cirrhosis of liver, C25.0 Malignant neoplasm of head of pancreas, K74.60 UNSPECIFIED CIRRHOSIS OF LIVER C25.0 MALIGNANT NEOPLASM OF HEAD OF PANCREAS TECHNIQUE: Multiplanar MR examination of the abdomen was performed before and after administration of intravenous contrast with multiphase acquisitions according to standard protocol. COMPARISON: None. FINDINGS: Liver: Cirrhotic morphology. A geographi c hyperenhancement throughout the anterior section of the right liver lobe, compatible with expected post radiotherapy change. Postcontrast images are degraded by motion, limiting evaluation. Treated lesion in liver segment 8 has likely decreased in size, approximately 2.5 x 2.1 cm previously 3.9 x 3.0 cm (series 370, image 461). No clear evidence of enhancing or diffusion restricting disease. Biliary Tree: Unchanged mildly ectatic p eripheral bile ducts in the right anterior liver segment adjacent to the treated lesion. No new biliary ductal dilatation. Gallbladder is unremarkable. Pancreas: Unremarkable. No ductal dilata tion. Spleen: Unchanged enlargement, 15 cm scratch polisher niocaudal. Adrenal: Unremarkable. Kidneys: The kidneys enhance symmetrical ly. There are multiple non-enhancing cystic lesions within the renal parenchyma consistent with benign cysts. No hydronephrosis or solid mass. Bowel: Unremarkable. Lymph nodes: Unchanged prominent peripor nina lymph nodes, the largest between the pancreatic head and portal vein 1.6 in short axis (36/23). No new lymphadenopathy. Vessels: Early opacification of the righ t middle vein, indicative of some degree of systemic shunting. Right unchanged right portal vein thrombosis. Left portal vein remains patent. Unchanged mild narrowing of the main portal vein. Hepatic veins and splenic vein patent .Prominent splenoren al shunt measuring up to 2.1 cm. Skeleton: S/p median sternotomy.There ar e multilevel degenerative spinal changes. No suspicious osseous lesion. Other: Trace volume of free intraperiton eal fluid in the upper abdomen. Small right pleural effusion. IMPRESSION: 1.S/p Y-90 of segment 8 with right branc h portal vein invasion. Mass appears smaller without clear evidence of residual disease. No new suspicious liver lesion. 2.Unchanged complete right portal vein a nd partial common portal vein thrombosis. No discrete tumor thrombus visualized. 3.Unchanged prominent periportal/peripan creatic lymph nodes. No new adenopathy. 4.Unchanged splenomegaly and prominent s plenorenal shunt. 5.Increased small volume ascites and sma ll right pleural effusion. [id number] Performing Organization Address City/[facility] Phon e Number [facility] [address] [place] [address] POC creatinine (02/22/2020 8:15 AM CDT)Only the most recent of2 resultswithin the time period is included. POC creatinine 1.3 (H) 0.7 - 1.2 [facility] Comment: mg/dl HOSPITAL Dovetailer Name: Charlotte Palacio Device ID: [id number] Specimen Blood Performing Organization Address City/[facility]/ZIP Code Phon e Number [facility] DEPARTMENT OF PATHOLOGY AND [address] [place], [place] [address] GENOMIC MEDICINE [address] [address] NM Spect Liver Imaging (01/02/2020 2:09 PM CDT) Specimen Narrative Performed At Procedure: NM Y90 MICRO SPHERES THERAP Y [facility] Clinical History: C22.0 Liver cell car cinoma, HCC Comparison: MRI abdomen 11/20/2019 Technique: An intra-arterial catheter was advanced into the right hepatic artery by Interventional Radiology at this [facility]. 48 mCi o f V29-Aexgythluaer were administered into a branch of the right hepatic a rtery. The following day the patient was brought to the Nuclear Medicine department for SPECT/CT imaging of th e abdomen, followed by planar imaging of the abdome n and chest. Findings: Marked uptake is present throughout segment 8. No upta ke in the other abdominal organs. Pulmonary uptake is very mild, well within acceptable limits. IMPRESSION: Successful targeting of P18-Lgsuvdlqbyyt to segment 8. [facility]-[id number] Procedure Note Interface, Radiology Results Incoming - 01/02/2020 4:22 PM CDT Procedure: NM Y90 MICRO SPHERES THERAPY Clinical History: C22.0 Liver cell carc inoma, HCC Comparison: MRI abdomen 11/20/2019 Technique: An intra-arterial catheter was advanced into the right hepatic artery by Interventional Radiology at this [facility]. 48 mCi of W93-Yowygrzdlinz were administered into a branch of the right hepatic artery. The following day the patient was brought to the Nuclear Medicine department for SPECT/CT imaging of the abdomen, followed by planar imaging of the abdomen and chest. Findings: Marked uptake is present throughout segm ent 8. No uptake in the other abdominal organs. Pulmonary uptake is very mild, well within acceptable limits. IMPRESSION: Successful targeting of R23-Nybmldelzwtc to segment 8. [facility]-[id number] Performing Organization Address City/State/ZIP Code Phon e Number [facility] [address] [place] [address] NM Y90 Micro Spheres Therapy (01/02/2020 2:09 PM CDT) Specimen Narrative Performed At This result has an attachment that is no t available. Procedure: NM Y90 MICRO SPHERES THERAPY [facility] Clinical History: C22.0 Liver cell carcinoma, HCC Comparison: MRI abdomen 11/20/2019 Technique: An intra-arterial catheter was advanced into the right hepatic artery by Interventional Radiology at this hospital. 48 mCi of C71-Qfmmlpkxvhei were administered into a branch of the right hepatic quinton ry. The following day the patient was brought to the Nuclear Medicine department for SPECT/CT imaging of the abdomen, followed by planar imaging of the abdomen and chest. Findings: Marked uptake is present throughout segm ent 8. No uptake in the other abdominal organs. Pulmonary uptake is very mild, well within acceptable limits. IMPRESSION: Successful targeting of Y15-Knggppprbqey to segment 8. [facility]-[id number] Procedure Note Interface, Radiology Results Incoming - 01/02/2020 4:22 PM CDT Procedure: NM Y90 MICRO SPHERES THERAPY Clinical History: C22.0 Liver cell carc inoma, HCC Comparison: MRI abdomen 11/20/2019 Technique: An intra-arterial catheter was advanced into the right hepatic artery by Interventional Radiology at this hospital. 48 mCi of V80-Vuqfcnacwywc were administered into a branch of the right hepatic artery. The following day the patient was brought to the Nuclear Medicine department for SPECT/CT imaging of the abdomen, followed by planar imaging of the abdomen and chest. Findings: Marked uptake is present throughout segm ent 8. No uptake in the other abdominal organs. Pulmonary uptake is very mild, well within acceptable limits. IMPRESSION: Successful targeting of G63-Eyrhvtkdsqvt to segment 8. [id number] Performing Organization Address [facility] Code Phon e Number [facility] [address] [place] [id number] Vitamin D 25 hydroxy level (01/02/2020 4:00 AM CDT) Vitamin D, 26.6 (L) 30.0 - 150.0 [facility] 25-hydroxy Comment: ng/mL HOSPITAL This assay reports the sum of 25-hydroxy vitamin D3 an d 25-hydroxy vitamin D2. Reference range: 0-17 years: Deficiency: less than 20ng/mL Optimum level: greater than or equal to 20 ng/mL. 18 years and older: Deficiency: less than 20ng/mL Insufficiency: 20-29 ng/mL Optimum Level: 30-80 ng/mL The assay reportable range is 3.4 155.9 ng/mL. Level s higher than 150 ng/mL may be associated with toxicity. If toxicity is clinically suspected and the reported r esult is >155.9 ng/mL,contact lab for alternative methods to obtain a definitive level. If separate quantitation of 25-hydroxy vitamin D3 and 25-hydroxy vitamin D2 is needed, please contact lab for alternative methods. Specimen Blood Performing Organization Address City/[facility]/ZIP Code Phon e Number [facility] DEPARTMENT OF PATHOLOGY AND [address] [place], [place] [phone] GENOMIC MEDICINE [address] [place] [address] T4 (01/02/2020 4:00 AM CDT) Pathologist Sig nature T4 6.5 4.5 - 11.7 ug/dL [facility] AL Specimen Blood Performing Organization Address City/[facility]/ZIP Code Phon e Number [facility] DEPARTMENT OF PATHOLOGY AND [address] [place] [address] [phone] [address] Hemoglobin A1c (01/02/2020 4:00 AM CDT) Hemoglobin A1C 5.7 (H) 4.0 - 5.6 % [facility] Comment: HOSPITAL HbA1c cutoffs for diagnosing diabetes: 4.0% - 5.6% = normal 5.7% - 6.4% = increased risk for diabetes (prediabetes )9 >=6.5% = diabetes9 Goals for glycemic control (ADA 2016) < 7.0% Target for non adults with diabetes. More or less stringent targets may be appropriate for individual patients. <7.5% Target for Children and adolescents with type 1 diabetes. Specimen Blood Performing Organization Address City/State/ZIP [facility] Phon e Number [facility] DEPARTMENT OF PATHOLOGY AND [address] [place] [address] [phone] [address] IR Radioembolization (01/01/2020 10:30 AM CDT)Only the most recent of2 results within the time period is included. Specimen Narrative Performed At Phase II Y-90 01/01/2020 [facility] Indication: 54-year-old man with infiltr ative hepatocellular carcinoma. Pre-Procedure Diagnosis: Hepatocellular carcinoma Post-procedure Diagnosis: Hepatocellular carcinoma Dovetailer: John Baca Personal protective equipment: Surgical Mask; Sterile Surgical Gown; Sterile Gloves; Lead Glasses. Patient Ma sk: Yes Level of anesthesia: Moderate Sedation Medications used: 1% Lidocaine IV Fentan yl and IV Versed Anesthesia administration: Pulse oximetry, heart rate, and blood pressure were continuously monitored by a radiology nu rse and the performing provider. Duration of intra-service [id number]-[id number] a nesthesia/sedation: 64 minutes Radiation Dose: 828 mGy (reference air k josé antonio (ka, r)) Estimate blood loss: <5 mL Blood adminis tered: None Complications: None Implants/Grafts: None Specimen: None Procedure: Informed consent was obtained and the patient placed s upine. A timeout was performed. Preliminary ultrasound of the right com mon femoral artery was performed. The right groin was prepped and draped in standard sterile fashion. Using real-time ultrasound guidance a 21-gauge vascula r needle was used to access the right common femoral artery. A sonograph ic image was stored in the electronic medical record. The needle wa s exchanged for 5-Kuwaiti sheath. Selective angiograms were performed from the following locations using either a 5-[place]i De Leon B catheter or 2. 4 Progreat microcatheter: Celiac axis (1st order) Right hepatic artery (>3rd order) Anterior division sectoral branch (>3rd order) Right common femoral artery Contrast-enhanced coned beam CT could not be performed because of hardware failure. Following confirmation of catheter positioning radiois otope administration was performed as follows: Radioisotope: Yttrium-90 glass microsphe res Catheter position for administration: An terior division sectoral branch Administration and point: Complete deliv gadiel of dose. Angiographic endpoint: Not applicable Dose: Desire dose target volume: 120 Gy; 1.784 GBq via l with administration of 48 mCi for a dose of 1 17 Gy. Hemostasis of the right common femoral artery was achi eved with a Mynx vascular closure device. The patient tolerated the procedure well. There were n o immediate complications. Findings: Common femoral artery ultrasound: Patent vessel with normal flow. Common femoral artery angiogram: Normal Celiac axis angiogram: Unchanged arteria l anatomy from phase I. Selective angiograms listed above are unchanged from t he phase I, with infiltrative tumor and associated tumor thrombus predo minant in segment 8. Impression: Successful radioisotope administration from the anteri or division sectoral branch supplying segment 8 and a small portion of segment 5 Recommendations or Plan: MRI in 2-3 months to evaluate treatment response. Procedure Note Hm Interface, Radiology Results Incoming - 01/02/2020 8:01 AM CDT Phase II 01/01/2020 Indication: 54-year-old man with infiltr ative hepatocellular carcinoma. Pre-Procedure Diagnosis: Hepatocellular carcinoma Post-procedure Diagnosis: Hepatocellular carcinoma Dovetailer: John Baca Personal protective equipment: Surgical Mask; Sterile Surgical Gown; Sterile Gloves; Lead Glasses. Patient Mask: Yes Level of anesthesia: Moderate Sedation Medications used: 1% Lidocaine IV Fentan yl and IV Versed Anesthesia administration: Pulse oximetr y, heart rate, and blood pressure were continuously monitored by a radiology nurse and the performing provider. Duration of intra-service uiir-pl-[id number] a nesthesia/sedation: 64 minutes Radiation Dose: 828 mGy (reference air k josé antonio (ka, r)) Estimate blood loss: <5 mL Blood adminis tered: None Complications: None Implants/Grafts: None Specimen: None Procedure: Informed consent was obtained and the pa tient placed supine. A timeout was performed. Preliminary ultrasound of the right common femoral artery was performed. The right groin was prepped and draped in standard sterile fashion. Using real-time ultrasound guidance a 21 -gauge vascular needle was used to access the right common femoral artery. A sonographic image was stored in the electronic medical record. The needle was exchanged for 5-Kuwaiti sheath. Selective angiograms were performed from the following locations using either a 5-[place] De Leon B catheter or 2.4 Progreat microcatheter: Celiac axis (1st order) Right hepatic artery (>3rd order) Anterior division sectoral branch (>3rd order) Right common femoral artery Contrast-enhanced coned beam CT could no t be performed because of hardware failure. Following confirmation of catheter posit ioning radioisotope administration was performed as follows: Radioisotope: Yttrium-90 glass microsphe res Catheter position for administration: An terior division sectoral branch Administration and point: Complete deliv gadiel of dose. Angiographic endpoint: Not applicable Dose: Desire dose target volume: 120 Gy; 1.784 GBq vial with administration of 48 mCi for a dose of 117 Gy. Hemostasis of the right common femoral a rtery was achieved with a Mynx vascular closure device. The patient tolerated the procedure well . There were no immediate complications. Findings: Common femoral artery ultrasound: Patent vessel with normal flow. Common femoral artery angiogram: Normal Celiac axis angiogram: Unchanged arteria l anatomy from phase I. Selective angiograms listed above are un changed from the phase I, with infiltrative tumor and associated tumor thrombus predominant in segment 8. Impression: Successful radioisotope administration f rom the anterior division sectoral branch supplying segment 8 and a small portion of segment 5 Recommendations or Plan: MRI in 2-3 months to evaluate treatment response. Performing Organization Address City/[facility]/ZIP Code Phon e Number [facility] [address] [place] [address] NM Lung Perfusion Imaging (12/21/2019 4:05 PM CDT) Specimen Narrative Performed At Procedure: NM LUNG PERFUSION IMAGING [facility] Clinical History: C22.0 Liver cell car cinoma, HCC Comparison: MRI abdomen 11/20/2019 Technique: An intra-arterial catheter was advanced into the right hepatic artery by Interventional Radiology at this hospital. 7 mCi of Tc-99m-MAA were administered into segment 8. The patient was brought t o the Nuclear Medicine department for SPECT/CT imaging of the abdomen, followed by planar imaging of the abdomen and chest. Findings: Marked uptake in segment 8. No uptake in the other abdominal organs. Pulmonary shunting = 7% (optimal is less than 10%) IMPRESSION: 1.Targeting of tracer to segment 8. 2.Pulmonary shunting is well within acceptable limits. No need for dose reduction during therapy. [id number] Procedure Note [facility], Radiology Results Incoming - 12/21/2019 5:17 PM CDT Procedure: NM LUNG PERFUSION IMAGING Clinical History: C22.0 Liver cell carc inoma, HCC Comparison: MRI abdomen 11/20/2019 Technique: An intra-arterial catheter was advanced into the right hepatic artery by Interventional Radiology at this hospital. 7 mCi of Tc-99m-MAA were administered into segment 8. The patient was brought to the Nuclear Medicine department for SPECT/CT imaging of the abdomen, followed by planar imaging of the abdomen and chest. Findings: Marked uptake in segment 8. No uptake in the other abdominal organs. Pulmonary shunting = 7% (optimal is less than 10%) IMPRESSION: 1.Targeting of tracer to segment 8. 2.Pulmonary shunting is well within acce ptable limits. No need for dose reduction during therapy. [id number] Performing Organization Address [facility]/ZIP Code Phon e Number [facility] [address] [place] [address] IR 3D Recon Slices Snapshots RDMPS (12/21/2019 1:15 PM CDT) Specimen Narrative Performed At Non-Reportable/No report needed. [facility] Performing Organization Address City/[facility]/ZIP Code Phon e Number [facility] [address] [place] [address] CT Chest Wo Contrast (12/10/2019 2:30 PM CDT) Specimen Narrative Performed At EXAMINATION: [facility] CT CHEST WO CONTRAST CLINICAL HISTORY: C22.0 Liver cell carcinoma, liver cancer TECHNIQUE: Multiple axial images of the chest were obtained witho ut intravenous contrast. The lack of intravenous contrast reduces the sensitivity of detecting solid organ disease and evaluating vasculatu re. Sagittal and coronal computerized reformatted images were also obtained. All CT images were acquired using lo w-dose technique with automated exposure control. COMPARISON: None. FINDINGS: 1.Heart size is normal. Median sternotomy wires overli e the midline. Postsurgical changes relating to aortic annuloplasty a nd ascending aortic aneurysm repair. No mediastinal l ymphadenopathy. 2.A suspicious pulmonary mass or opacity is not identi fied. The airways are patent without peribronchial wall thickening or mu cous plugging. No pleural or pericardial effusion. 3.Subpleural calcified granuloma in the right lower lobe measures 3 mm. 4.Limited images to the upper abdomen demonstrates cir rhosis and splenomegaly. 5.Osseous structures are intact with degenerative wang ges involving the thoracic spine. IMPRESSION: 1.No evidence to suggest metastatic dise ase. [facility]-[id number] Procedure Note Interface, Radiology Results Incoming - 12/10/2019 3:11 PM CDT EXAMINATION: CT CHEST WO CONTRAST CLINICAL HISTORY: C22.0 Liver cell carcinoma, liver cancer TECHNIQUE: Multiple axial images of the chest were obtained without intravenous contrast. The lack of intravenous contrast reduces the sensitivity of detecting solid organ disease and evaluating vasculature. Sagittal and coronal computerized reformatted images were also obtained. All CT images were acqu ired using low-dose technique with automated exposure control. COMPARISON: None. FINDINGS: 1.Heart size is normal. Median sternotom y wires overlie the midline. Postsurgical changes relating to aortic annuloplasty and ascending aortic aneurysm repair. No mediastinal lymphadenopathy. 2.A suspicious pulmonary mass or opacity is not identified. The airways are patent without peribronchial wall thickening or mucous plugging. No pleural or pericardial effusion. 3.Subpleural calcified granuloma in the right lower lobe measures 3 mm. 4.Limited images to the upper abdomen de monstrates cirrhosis and splenomegaly. 5.Osseous structures are intact with deg enerative changes involving the thoracic spine. IMPRESSION: 1.No evidence to suggest metastatic dise ase. [id number] Performing Organization Address City/State/ZIP Code Phon e Number [facility] [address] [place] [address] NM Bone Scan Whole Body (12/10/2019 1:24 PM CDT) Specimen Narrative Performed At PROCEDURE: NM BONE SCAN WHOLE BODY [facility] INDICATION: Liver cancer. Hepatoma. COMPARISON: CT scan of the abdomen and pelvis 020, chest CT performed on same day. TECHNIQUE: Approximately three hours after the IV admi nistration of 25 mCi of Tc-99m labeled MDP, routine whole body planar b one scanning was performed in the anterior and posterior projections. FINDINGS: No suspicious uptake is seen to suggest pr esence of osseous metastatic disease. DJD is noted in the shoulders, s pine, SI joints, hips, and knees. Prior midline sternot modesto. IMPRESSION: 1. No scintigraphic evidence of osseou s metastatic disease. [id number] Procedure Note Interface, Radiology Results Incoming - 12/10/2019 2:40 PM CDT PROCEDURE: NM BONE SCAN WHOLE BODY INDICATION: Liver cancer. Hepatoma. COMPARISON: CT scan of the abdomen and pelvis 10/19/2019, chest CT performed on same day. TECHNIQUE: Approximately three hours aft er the IV administration of 25 mCi of Tc-99m labeled MDP, routine whole body planar bone scanning was performed in the anterior and posterior projections. FINDINGS: No suspicious uptake is seen to suggest presence of osseous metastatic disease. DJD is noted in the shoulders, spine, SI joints, hips, and knees. Prior midline sternotomy. IMPRESSION: 1. No scintigraphic evidence of osseous metastatic disease. [id number] Performing Organization Address [facility] Phon e Number [facility] [address] [place] [address] Cancer antigen 19-9 (12/10/2019 10:25 AM CDT) CA 19-9 27 0 - 35 U/mL [facility] Comment: HOSPITAL The Luigi Dylan 8000 CA19-9 immunoassay was used. Results obtained with different assay methods or kits should not be used interchangeably and may be differen t. Specimen Blood Performing Organization Address [facility] Phon e Number [facility] DEPARTMENT OF PATHOLOGY AND [address] [place] [phone] GENOMIC MEDICINE [address] [address] [address] Abdomen WWO Contrast, Pelvis W Contrast (10/19/2019 9:19 AM CDT) Specimen Narrative Performed At EXAMINATION: CT ABDOMEN WWO CONTRAST P SVETLANA W CONTRAST [facility] CLINICAL HISTORY: 64 yearsMale R97.8 Other abnormal tu mor markers, K74.60 Unspecified cirrhosis of liver, C IRRHOSIS TECHNIQUE: Multiple axial images of the abdomen and pe lvis were obtained following intravenous administration of iodinated cont rast. Precontrast series of the abdomen were also performed. Sagittal an d coronal computerized reformatted images were als o obtained. CT imaging was performed with iterative clare nstruction techniques and/or automated exposure con trol to reduce radiation dose. COMPARISON: CT abdomen pelvis 9 IMPRESSION: LOWER CHEST: Visualized lower thorax: Lung bases: No significant pleural effusion. Calcifi ed granuloma right lower lobe. Lower mediastinum: Cardiac size is normal. No pericard ial effusion. Partially visualized median sternotomy postoperative changes. Retained epicardial pacing leads. Atherosclerotic calcification of the coronary arteries. ABDOMEN: Upper abdominal organs: Liver: There is a macronodular contour to the liver wi th hypertrophy of the left hemiliver and caudate lobe and widening of th e periportal space. The liver measures 13 cm in craniocaudal dimens ion at the midclavicular line. 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 Focal hepatic lesions: 1. 1.1 cm hypoenhancing focus in hepatic segment 8 (se david 4, image 30), not definitely visualized on the prior s tudy, LR 3. Gallbladder: Nondistended, contains chol elithiasis. Spleen: Enlarged, measures 16 cm in cran iocaudal dimension. Pancreas: Normal. Adrenal Glands: Normal. Kidneys: 3 cm cyst in the right lateral kidney. Focal cortical defect left kidney inferior pole. No hydronephrosis. No renal or ureteral calculi. Bowel and mesentery: Large and small bowel are normal in caliber without focal wall thickening or mesenteric fat stranding. Kaleb tral abdominal hernia mesh repair markers. Normal appendix. The bowel is otherwise normal.No free intraperitoneal gas or fl uid. Vasculature: Abdominal aorta is of normal caliber. Paz iac artery, superior and inferior mesenteric arteries, superior me senteric and portal veins appear patent. Mild calcified and no n-calcified atherosclerotic disease of the abdominal aorta and branch vessels. Again noted partial thrombosis of the portos plenic confluence extending into the main and right portal veins. Large perisplenic collaterals. Small paraesophageal varice s. Lymph nodes: Enlarged periportal lymph nodes. For refe kirstin, there is a 2.1 x 1.3 cm periportal lymph node (series 5, image 49 ). There is an enlarged 2.7 x 1.9 cm pericaval lymph no de (series 5, image 63). PELVIS: Urinary bladder: Normal. Lymph nodes: No pelvic lymphadenopathy. MUSCULOSKELETAL: No suspicious lytic or blastic osseous lesions. The ahmadi perficial soft tissues are unremarkable. Age appropriate degenerative changes of the spine. L4 inferior endplate Schmorl's no de. SUMMARY: 1. 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 2. Nodular, cirrhotic liver with sequelae of portal hy pertension including splenomegaly, perisplenic and paraesophageal varices. 3. Increased size of periportal and pericaval lymph no perla, greater than expected for reactive lymphadenopathy, possibly sequel a of chronic liver disease, however metastatic disease is n ot excluded. 4. 1.1 cm hypoenhancing lesion in hepatic segment 8, L I-RADS 3, indeterminate. Follow-up with liver MRI or CT in 6 mon ths can be performed to assess stability, if indica mil clinically. 5. Cholelithiasis. Findings of portal thrombosis were discussed by phone with Dr. Sargent by Dr. Caro at 10/19/2019 9:30 AM. [id number] Performing Organization Address City/State/ZIP Code Phon e Number [facility] [address] [place] [address] after 04/18/2019 Advance Directives For more information, please contact: [phone] Type Date Recorded Patient Visitor Services Representative Explanati on Advance Directives, 03/01/2019 1:12 PM DOES NOT HAVE DNR Living Will and Medical Power of Search Analyst Advance Directives, 06/19/2018 10:50 AM 9 Living Will and Medical Power of Search Analyst Code Status Date Activated Date Inactivated Comments Full Code 03/01/2019 4:08 PM 03/03/2019 1:49 AM Code Status decision reached by: Patient
--- OUTSIDE RECORDS SUMMARY | 2020-04-18 14:21 | XMS REPORT | Continuity of Care Document ---
:1955 Author Organization [facility] t Address [address] [place] [address] Care Team Providers Name Role Phone Parish PEACOCK Primary Care Physician Nicole CHRISTY Attending Clinician Unavailable Fabrice Jain RN Attending Clinician Unavailable Bubba PEACOCK Attending Clinician Naresh Lua Attending Clinician Unavailable Krys [facility] Attending Clinician Unavailable Risa [facility] Attending Clinician Unavailable Richa Luna RN Attending Clinician Unavailable Provider Attending Clinician Unavailable Xu Perez MD Attending Clinician Verna Powell MD Attending Clinician Ana PEACOCK Attending Clinician John PEACOCK Attending Clinician Joseph Pollack MD Attending Clinician Lisa CHRISTY Attending Clinician Unavailable Eran Franco [facility] Attending Clinician Unavailable Zoë LEONARDO Attending Clinician Unavailable Shane PEACOCK Attending Clinician VERNA POWELL Admitting Clinician Unavailable ANA Admitting Clinician Unavailable Payers Payer Name Policy Type Policy Effective Date Expiration Date Sour Number CIGNACIGNA OPEN [id number] 2002 2020 [place] ACCESS/NETWORKxx 00:00:00 23:59:59 Methodis t [id number] 2020HMO Problems Condition Condition Condition Status Onset Resolution Last Treating Co mments Source Name Details Category Date Date Treatment Clinician Date 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 00:00: st 00 Disorder Disorder Disease Active [place] of liver of liver 12-31 Method i 00:00: st 00 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 00:00: st 00 Hepatoma Hepatoma Disease Active [place] 12-04 Methodi 00:00: st 00 Bleeding Bleeding Disease Active 2018-04 [place] internal internal 05-01 Method i hemorrhoid hemorrhoid 00:00: st s s 00 S/P AVR S/P AVR Disease Active [place] 06-21 Methodi 00:00: st 00 Acute Acute Disease Active [place] 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 drug Family History Family Member Diagnosis Comments Start Date Stop Date Source Natural father Heart disease [place] [facility] Social History Social Habit Start Date Stop Date Quantity Comments Source Sex Assigned At [facility] ethodist Exposure to Not sure [place] Metho dist SARS-CoV-2 (event) Tobacco use and 2020-02-23 2020-02-23 Never used [facility] ethodist exposure 00:00:00 00:00:00 Alcohol intake 2020-02-23 2020-02-23 Current [facility] thodist 00:00:00 00:00:00 non-drinker of alcohol (finding) Smoking Status Start Date Stop Date Source Never smoker [place] Methodis t Medications Ordered Filled Start Stop Current Ordering Indication Dosage Frequency Signature Comments Components Source Medication Medication Date Date Medication? Clinician (SIG) Name Name nivolumab 2019- 2020- No 480mg Infuse 48 [place] (OPDIVO) 2-11 12-18 mL (480 mg Meth lisa 240 mg/24 00:00: 23:59 total) st mL solution 00 :00 into a venous catheter once for 1 dose. lisinopril 2019-04 Yes 5mg QD Take 5 mg [place] (PRINIVIL,Z 2-03 by mouth Meth lisa ESTRIL) 5 15:16: daily. st mg tablet 07 gabapentin 2019-04 Yes 200mg QD Take 200 [place] (NEURONTIN) 2-03 mg by Methodi 100 mg 15:16: mouth st capsule 07 nightly. empaglifloz 2019-04 Yes 10mg QD Take 10 mg [place] in 2-03 by mouth Methodi (JARDIANCE) 15:16: daily. st 10 mg 07 tablet tablet metoprolol 2019-04 Yes 75mg Q.5D Take 75 mg [place] tartrate 75 2-03 by mouth 2 Me thodi mg tablet 15:16: (two) st 07 times a day. pantoprazol 2019-04 Yes 40mg QD Take 40 mg [place] e 2-03 by mouth Methodi (PROTONIX) 15:16: daily. st 40 MG EC 07 tablet aspirin 325 2019-04 Yes 325mg QD Take 325 [place] MG tablet 2-03 mg by Methodi 15:16: mouth st 07 daily. evolocumab 2019-04 Yes 140mg Q14D Inject 140 [place] (REPATHA) 2-03 mg under Method i 140 mg/mL 15:16: the skin st syringe 07 every 14 injection (fourteen) days. Every other Tuesday. Next dose due 02/29/20 spironolact 2019-04 Yes 50mg QD Take 50 mg [place] one 2-03 by mouth Methodi (ALDACTONE) 15:16: daily. st 50 MG 07 tablet icosapent 2020- Yes 1g Q.5D Take 1 g [place] ethyL 2-03 by mouth 2 Methodi (VASCEPA) 1 15:16: (two) st gram 07 times a capsule day. furosemide 2019-04 Yes 40mg Take 40 mg [place] (LASIX) 40 2-03 by mouth Metho di mg tablet 15:16: daily. st 07 b complex 2019- Yes 1{tbl} QD Take 1 [place] vitamins 2-03 tablet by Method i tablet 15:16: mouth st 07 daily. lactulose 2019-04 Yes 15mL Q.5D Take 15 mL [place] 20 gram/30 2-03 by mouth 2 Met hodi mL solution 15:16: (two) st 07 times a day. b complex 2019-04 2020- No 2{tbl} QD Take 2 [place] vitamins (B 2-03 12-03 tablets by M jonahodi COMPLEX 1) 13:43: 00:[address] tablet 11 :00 daily. furosemide 2019-04- No 20mg QD Take 20 mg [place] (LASIX) 40 2- 12-03 by mouth Meth lisa mg tablet 13:40: 00:[address] 33 :00 icosapent 2019-04- No 2g Q.5D Take 2 g [place] ethyL - 12- by mouth 2 Methodi (Vascepa) 1 13:39: 00:00 (two) st gram 28 :00 times a capsule day. buPROPion 2019-04- No 150mg QD Take 150 [place] XL 2-03 12-03 mg by Methodi (WELLBUTRIN 13:33: 00:[address] XL) 150 MG 30 :00 nightly. 24 hr tablet ondansetron 2019-04- No 4mg Q8H Take 4 mg [place] (ZOFRAN) 4 1-18 11-18 by mouth Meth lisa MG tablet 14:12: 00:[address] 01 :00 (eight) hours as needed for nausea or vomiting. ondansetron 2019-04 Yes 4mg Q8H Take 1 [place] (ZOFRAN) 4 1-18 tablet (4 Meth lisa MG tablet 00:00: mg total) st 00 by mouth every 8 (eight) hours as needed for nausea or vomiting. prochlorper 2019-04- No 5mg Q6H Take 1 [place] azine 1-18 12-18 tablet (5 Methodi (COMPAZINE) 00:00: 23:59 mg total) st 5 MG tablet 00 :00 by mouth every 6 (six) hours as needed for nausea or vomiting for up to 30 days. omega-3s-dh 2019-04 2020- No Q.5D Take by [place] a-epa-fish 02-22 mouth 2 Metho di oil 19:20: 00:00 (two) st 1,000-1,400 25 :00 times a mg day. capsule,del ayed release(DR/ EC) ondansetron 2019-0 2020- No 4mg Q8H Take 1 [place] (Zofran) 4 01-01 tablet (4 Met hodi MG tablet 00:00: 00:00 mg total) st 00 :00 by mouth every 8 (eight) hours as needed for nausea or vomiting for up to 20 doses. traMADoL 2019- 2020- No acute pain 50mg Q6H Take 1 [place] (ULTRAM) 50 01-01 tablet (50 M ethodi mg tablet 00:00: 23:59 mg total) st 00 :00 by mouth every 6 (six) hours as needed for moderate pain for up to 20 doses .acute pain. semaglutide 2019- 2020- No .5mg Q1W Inject 0.5 [place] (OZEMPIC) 12-04 mg under Metho di 0.25 mg or 21:12: 00:[address] 0.5 mg(2 49 :00 every 7 mg/1.5 mL) days. pen Tuesday injector pitavastati 2019- 2020- No 4mg QD Take 4 mg [place] n calcium 12-04 by mouth Metho di (LIVALO) 4 21:12: 00:[address] mg tablet 46 :00 metFORMIN 2019-0 2020- No 500mg Q.5D Take 500 [place] XR 12-04 mg by Methodi (GLUCOPHAGE 21:12: 00:[address] -XR) 500 mg 41 :00 (two) 24 hr times a tablet day. insulin 2020-0 2020- No 68U QD Inject 68 [place] degludec 12-04 Units Methodi (TRESIBA 21:12: 00:[address] FLEXTOUCH 35 :00 skin U-100) 100 nightly. unit/mL (3 mL) insulin pen iron,carbon 2019-0 2020- No 1{tbl} QD Take 1 H savagegluc-FA-B1 12-04 tablet by Me thodi 2-C-dss 21:12: 00:[address] (FERRALET 35 :00 nightly. 90 DUAL-IRON DELIVERY) 90--12-50 mg-mg-mcg-m g tablet Vital Signs Vital Name Observation Time Observation Value Comments Source Systolic blood 2020-03-27 13:00:00 111 mm[Hg] [place] [facility] pressure Diastolic blood 2020-03-27 13:00:00 59 mm[Hg] [place] on [facility] pressure Heart rate 2020-03-27 13:00:00 68 /min [place] [facility] Body temperature 2020-03-27 13:00:00 36 Paz [place] [facility] Respiratory rate 2020-03-27 13:00:00 18 /min [place] [facility] Body height 2020-03-27 13:00:00 172.7 cm [place] [facility] Body weight 2020-03-27 13:00:00 111.086 kg [place] BMI 2020-03-27 13:00:00 37.24 kg/m2 [place] Oxygen saturation in 2020-03-27 13:00:00 99 /min [place] Arterial blood by Pulse oximetry Procedures Procedure Date / Time Performing Clinician Source Performed HC COMPLETE BLD COUNT W/AUTO 2020-03-27 14:17:00 Jean-Claude Jones DIFF COMPREHENSIVE METABOLIC 2020-03-27 14:17:00 Jean-Claude Jones PANEL MAGNESIUM LEVEL 2020-03-27 14:17:00 Jean-Claude Joens Meth odist THYROID STIMULATING HORMONE 2020-03-27 14:17:00 Jean-Claude Jones T4, FREE 2020-03-27 14:17:00 Jean-Claude Jones Meth odist ESTIMATED GFR 2020-03-27 14:17:00 Jean-Claude Jones odcelia ALPHA FETOPROTEIN 2020-03-27 13:12:00 Jean-Claude Jones thlisast T3, FREE 2020-03-27 13:12:00 Jean-Claude Jones odcelia TTE COMPLETE, W CONTRAST, W 2020-02-25 15:13:00 Jeremy Rey DOPPLER ([id number]) POC GLUCOSE 2020-02-25 12:10:00 Colten Perezist POC GLUCOSE 2020-02-25 09:05:00 PerezColten [place] ALPHA FETOPROTEIN 2020-02-25 08:17:00 Bubba Jean-Claude [facility] thodi HC COMPLETE BLD COUNT W/AUTO 2020-02-25 05:44:00 Jimenez To DIFF José Miguel BASIC METABOLIC PANEL 2020-02-25 05:44:00 Valentina To n Marielle Valdez HEPATIC FUNCTION PANEL 2020-02-25 05:44:00 Tomas To on Christianity José Miguel MAGNESIUM LEVEL 2020-02-25 05:44:00 Vernavianney Powell [place] Meth odcelia Valdez PROTHROMBIN TIME WITH INR 2020-02-25 05:44:00 Ravin To ESTIMATED GFR 2020-02-25 05:44:00 Vernavianney Powell [place] Meth odist José Miguel PHOSPHORUS LEVEL 2020-02-25 05:44:00 Vernavianney Powell [place] [facility] Valdez POC GLUCOSE 2020-02-24 20:58:00 Vernavianney Powell [place] Meth odist José Miguel POC GLUCOSE 2020-02-24 18:33:00 Vernavianney Powell [place] Meth odcelia Valdez US ABDOMINAL DOPPLER 2020-02-24 18:05:00 VernaJimenez Ledezmaist José Miguel US HEPATIC 2020-02-24 17:20:00 Vernavianney Douglass [place] Meth odist José Miguel POC GLUCOSE 2020-02-24 12:57:00 Vernavianney Powell [place] Meth odcelia Valdez HC COMPLETE BLD COUNT W/AUTO 2020-02-24 04:32:00 Jimenez To DIFF José Miguel COMPREHENSIVE METABOLIC 2020-02-24 04:32:00 Dusty To Christianity PANEL José Miguel MAGNESIUM LEVEL 2020-02-24 04:32:00 Vernavianney Powell [place] Meth odist José Miguel PHOSPHORUS LEVEL 2020-02-24 04:32:00 Vernavianney Powell [place] [facility] Valdez B NATRIURETIC PEPTIDE 2020-02-24 04:32:00 Valentina To n Marielle Valdez ESTIMATED GFR 2020-02-24 04:32:00 Vernavianney Powell [place] Meth odist José Miguel POC GLUCOSE 2020-02-23 21:33:00 VernaJimenez Ledezma POC GLUCOSE 2020-02-23 18:10:00 Jimenez To BLOOD CULTURE, AEROBIC & 2020-02-23 18:00:00 Isaamr Morataya ANAEROBIC [place] URINE CULTURE 2020-02-23 16:40:00 Claudio Perez Me thodist URINALYSIS SCREEN AND 2020-02-23 16:40:00 Claudio Perez MICROSCOPY, WITH REFLEX TO CULTURE POC GLUCOSE 2020-02-23 16:16:00 Jimenez To BLOOD CULTURE, AEROBIC & 2020-02-23 13:47:00 Isamar Morataya ANAEROBIC [place] CT CERVICAL SPINE WO 2020-02-23 13:41:54 Claudio Perez on [facility] CONTRAST CT HEAD WO CONTRAST 2020-02-23 13:41:35 Claudio Perez XR CHEST 1 VW PORTABLE 2020-02-23 13:15:21 Claudio Perez XR HAND 3+ VW LEFT 2020-02-23 13:14:49 Claudio Perez XR WRIST 3+ VW LEFT 2020-02-23 13:14:35 Claudio Perez COVID-19 QUALITATIVE PCR 2020-02-23 12:47:00 Claudio Perez SPLINT APPLICATION 2020-02-23 12:31:56 Claudio Perez HC COMPLETE BLD COUNT W/AUTO 2020-02-23 11:47:00 Claudio Perez DIFF COMPREHENSIVE METABOLIC 2020-02-23 11:47:00 Claudio Perez PANEL LIPASE LEVEL 2020-02-23 11:47:00 Claudio Perez Me thodist AMMONIA LEVEL 2020-02-23 11:47:00 Claudio Perez Me thodist PROTHROMBIN TIME WITH INR 2020-02-23 11:47:00 Claudio Perez ESTIMATED GFR 2020-02-23 11:47:00 Claudio Perez Me thodist ECG 12-LEAD 2020-02-23 11:45:08 Claudio Perez Me thodist MRI ABDOMEN W WO CONTRAST 2020-02-22 09:16:00 Abraham Sargent POC CREATININE 2020-02-22 08:15:00 Abraham Sargent Meth odist ESTIMATED GFR 2020-02-22 08:15:00 Abraham Sargent Meth odist NM SPECT LIVER IMAGING 2020-01-02 14:09:51 Abraham Sargent on Christianity NM Y90 MICRO SPHERES THERAPY 2020-01-02 14:09:12 Abraham Sargent POC GLUCOSE 2020-01-02 08:04:00 Colten Perez Met hodist HC COMPLETE BLD COUNT W/AUTO 2020-01-02 04:00:00 Radu Perez DIFF COMPREHENSIVE METABOLIC 2020-01-02 04:00:00 Colten Perez Christianity PANEL MAGNESIUM LEVEL 2020-01-02 04:00:00 Colten Perez Met hodist PHOSPHORUS LEVEL 2020-01-02 04:00:00 Colten Perez Me thodist PROTHROMBIN TIME WITH INR 2020-01-02 04:00:00 Colten Perez HEMOGLOBIN A1C 2020-01-02 04:00:00 Colten Perez Met hodist THYROID STIMULATING HORMONE 2020-01-02 04:00:00 Colten Perez T4 2020-01-02 04:00:00 Colten Perez Met hodist VITAMIN D 25 HYDROXY LEVEL 2020-01-02 04:00:00 Colten Perez ALPHA FETOPROTEIN 2020-01-02 04:00:00 Colten Perez M ethodist ESTIMATED GFR 2020-01-02 04:00:00 Colten Perez Met hodist POC GLUCOSE 2020-01-01 20:09:00 Colten Perez Met hodist POC GLUCOSE 2020-01-01 17:08:00 Colten Perez Met falguniist IR RADIOEMBOLIZATION 2020-01-01 10:30:09 Abraham Sargent POC GLUCOSE 2020-01-01 07:32:00 Colten Perez [facility] [place] NM LUNG PERFUSION IMAGING 2019-12-21 16:05:06 Abraham Sargent IR RADIOEMBOLIZATION 2019-12-21 13:15:34 Abraham Sargent IR 3D RECON SLICES SNAPSHOTS 2019-12-21 13:15:34 Abraham Sargent RDMPS PROTHROMBIN TIME WITH INR 2019-12-21 11:22:00 Micha Baca in [place] [facility] CHEST WO CONTRAST 2019-12-10 14:30:23 Jean-Claude Jones NM BONE SCAN WHOLE BODY 2019-12-10 13:24:00 Jean-Claude Jones HC COMPLETE BLD COUNT W/AUTO 2019-12-10 10:25:00 Jean-Claude Jones DIFF COMPREHENSIVE METABOLIC 2019-12-10 10:25:00 Jean-Claude Jones PANEL ALPHA FETOPROTEIN 2019-12-10 10:25:00 Jean-Claude Jones Me thodist CANCER ANTIGEN 19-9 2019-12-10 10:25:00 Jean-Claude Jones ESTIMATED GFR 2019-12-10 10:25:00 Jean-Claude Jones MRI ABDOMEN W WO CONTRAST 2019-11-20 09:41:[address] ABDOMEN WWO CONTRAST 2019-10-19 09:19:18 Abraham Sargent PELVIS W CONTRAST POC CREATININE 2019-10-19 08:14:00 Abraham Sargent odcelia ESTIMATED GFR 2019-10-19 08:14:00 Abraham Sargent Plan of Care Planned Activity Planned Date Details Comments Source Future Scheduled 2019-11-24 INFLUENZA VACCINE Valentina saldana [facility] Test 00:00:00 [code = INFLUENZA VACCINE] Future Scheduled 2005-09-03 COLONOSCOPY SCREENING Ho marbella Palomares Test 00:00:00 [code = COLONOSCOPY SCREENING] Future Scheduled 2005-09-03 SHINGLES VACCINES [place] [facility] Test 00:00:00 (#1) [code = SHINGLES VACCINES (#1)] Future Scheduled 1971 COVID-19 VACCINE (#1) [place] [facility] Test 00:00:00 [code = COVID-19 VACCINE (#1)] Future Scheduled 1965-09-03 DIABETES: RETINAL EYE [place] [facility] Test 00:00:00 EXAM [code = DIABETES: RETINAL EYE EXAM] Future Scheduled 1965-09-03 DIABETIC FOOT EXAM [place] [facility] Test 00:00:00 [code = DIABETIC FOOT EXAM] Encounters Start End Encounter Admission Attending Care Care Encounter Source Date/Time Date/Time Type Type Clinicians Facility Department ID 2020-03-27 2020-03-27 Outpatient JEAN-CLAUDE JONES [facility] [id number] [place] 00:00:00 00:00:[address] 2020-03-05 2020-03-05 Outpatient JEAN-CLAUDE JONES [facility] [id number] [place] 00:00:00 00:00:[address] 2020-02-23 2020-02-25 Inpatient PEREZ, [facility] [id number] [place] 00:00:00 00:00:00 COLTEN [address] 2020-02-22 2020-02-22 Outpatient DUCHINI, [facility] [id number] [place] 00:00:00 00:00:00 ABRAHAM [address] 2020-02-01 2020-02-01 Outpatient JEAN-CLAUDE JONES [facility] [id number] [place] 00:00:00 00:00:[address] 2020-01-01 2020-01-02 Outpatient PEREZ, [facility] [id number] [place] 00:00:00 00:00:00 COLTEN [address] 2020-01-01 2020-01-01 Outpatient DUCHINI, [facility] [id number] [place] 00:00:00 00:00:00 ABRAHAM [address] 2019-12-21 2019-12-21 Outpatient DUCHINI, [facility] [id number] [place] 00:00:00 00:00:00 ABRAHAM [address] 2019-12-21 2019-12-21 Outpatient DUCHINI, [facility] [id number] [place] 00:00:00 00:00:00 ABRAHAM 893 Method i 2019-12-10 2019-12-10 Outpatient JEAN-CLAUDE JONES [facility] [id number] [place] 00:00:00 00:00:00 923 Method i 2019-12-10 2019-12-10 Outpatient JEAN-CLAUDE JONES [facility] [id number] [place] 00:00:00 00:00:00 342 Method i 2019-12-10 2019-12-10 Outpatient JEAN-CLAUDE JONES [facility] [id number] [place] 00:00:00 00:00:00 341 Method i 2019-12-10 2019-12-10 Outpatient JEAN-CLAUDE JONES [facility] [id number] [place] 00:00:00 00:00:00 343 Method i 2019-12-05 2019-12-05 Outpatient JEAN-CLAUDE JONES [facility] [id number] [place] 00:00:00 00:00:00 806 Method i 2019-11-20 2019-11-20 Outpatient JOHN [facility] [id number] [place] 00:00:00 00:00:00 ABRAHAM 744 Method i 2019-10-19 2019-10-19 Outpatient JOHN [facility] [id number] [place] 00:00:00 00:00:00 ABRAHAM 867 Method i 2018-03-02 2018-03-02 Letter Shane [facility] [id number] 00:00:00 00:00:00 (Out[id number] [facility].[id number] [place] [id number] Results Test Description Test Time Test Comments Results Result Comments Source T3, free 2020-03-29 02:09:20 Test Item Value Reference Range Interpretation Comme nts T3, free (test code = 2.3 pg/mL 2.4-4.2 L [place] NCE INTERVAL: Triiodothyronine, 5404-9) Free (Free T3)A ccess complete set of age- and/or gen nomi-specific reference intervals for t his test in the [facility] Test Directory ([employer]).P erformed By: [employer] [place] [id number] aboratory Director: Chastity Pantoja MD Lab Interpretation (test Abnormal code = 74074-2) [place] MethodistT4, [id number] 18:11:14 Test Item Value Reference Range Interpretation Comments T4, free (test code = 3024-7) 1.4 ng/dL 0.9-1.7 [place] MethodistThyroid stimulating [id number] 18:11:14 Test Item Value Reference Range Interpretation Comments TSH (test code = 3016-3) 2.51 0.27- 4.20 uIU/mL [place] MethodistAlpha [id number] 16:09:39 Test Item Value Reference Range Interpretation Comments Alpha fetoprotein 12107.0 ng/mL 0-8.3 H The Dylan 8000 AFP (test code = immunoassay was used. 14685-7) Results obtaine d with different assay methods or kits should not be u sed interchangeably and may be differen t. Lab Interpretation Abnormal (test code = 94687-4) [place] MethodistComprehensive metabolic [id number] 14:53:21 Test Item Value Reference Range Interpretation Comments Sodium (test code = 135 135- 148 mEq/L 2951-2) Potassium (test code = 5.2 3.5- 5.0 mEq/L H 2823-3) Chloride (test code = 108 98- 112 mEq/L 5-0) CO2 (test code = 2027-9) 19 24- 31 mEq/L L Anion gap (test code = 8@ANIO 7- 15 mEq/L 08502-9) BUN (test code = 3094-0) 42 mg/dL 8-23 H Creatinine (test code = 1.20 mg/dL 0.7-1.2 2160-0) Glucose (test code = 259 mg/dL 65-99 H 2345-7) Calcium (test code = 9.0 mg/dL 8.8-10.2 10234-0) Protein (test code = 6.5 g/dL 6.3-8.3 -[place] n 2885-2) 4.6-7.0 g/dL1 week 4.4-7 .6 g/dL7 months-1y ear 5.1-7 .3 g/dL1-2 years 5.6-7 .5 g/dL>3 years 6.0-8 .0 g/yY00-552 6.3-8 .3 g/dL Albumin (test code = 2.9 g/dL 3.5-5 L 1751-7) A/G ratio (test code = 0.8 0.7-3.8 1759-0) Alkaline phosphatase 363 U/L 40-129 H (test code = 6768-6) AST (test code = 1920-8) 127 U/L 10-50 H ALT (test code = 1742-6) 74 U/L 5-50 H Total bilirubin (test 2.0 mg/dL 0-1.2 H code = 1974-) Lab Interpretation (test Abnormal code = 76332-1) [place] MethodistMagnesium [id number] 14:53:21 Test Item Value Reference Range Interpretation Comments Magnesium (test code = 30577-5) 2.0 mg/dL 1.6-2.4 [facility] MethodistEstimated [id number] 14:53:21 Test Item Value Reference Range Interpretation Comments Estimated GFR (test 63 mL/min/1.73 m2 [facility] Units code = 5488) InterpretationG 1 >=90 Normal or highG2 60-89 Mildly rlgjqgoykA9s 45-59 Mildly to mode rately onwfhyuxzP4q 30-44 Moderately to severely decreasedG4 15-29 Severely decre asedG5 <15 Kidn ey failureThe eGFR was calculated usin g the Chronic Kidney Disease Epidemiology Co llaboration (CKD-EPI) equat ion. Interpretation is based on recommendations of the National Kidney Foundation-Kidn ey Disease Outcomes Qualit y Initiative (NKF-KDOQI) pub lished in 2014. [facility] MethodistCBC with platelet and [id number] 14:26:37 Test Item Value Reference Range Interpretation Comments WBC (test code = 73426-9) 3.26 4.50- 11.00 k/uL L RBC (test code = 13076-4) 2.74 m/uL 4.4-6 L HGB (test code = 718-7) 9.1 g/dL 14-18 L HCT (test code = 4544-3) 27.1 % 41-51 L MCV (test code = 787-2) 98.9 fL 82-100 MCH (test code = 785-6) 33.2 pg 27-34 MCHC (test code = 786-4) 33.6 g/dL 31-37 RDW - SD (test code = 36428-0) 55.2 fL 37-55 H MPV (test code = 55746-7) 12.7 fL 8.8-13.2 Platelet count (test code = 151 150- 400 k/uL 76676-1) Neutrophils (test code = 03008-9) 68.3 % 39-69 Lymphocytes (test code = 03075-2) 16.0 % 25-45 L Monocytes (test code = 83065-4) 12.6 % 0-10 H Eosinophils (test code = 36908-5) 2.8 % 0-5 Basophils (test code = 01928-6) 0.3 % 0-1 Lab Interpretation (test code = Abnormal 94889-1) [place] MethodistBlood culture, aerobic & [id number] 20:33:05 Test Item Value Reference Range Interpretation Comments Blood culture No growth Specimen isolate (test after 5 days InformationSpe cimen code = 600-7) of Source: BloodS pecimen incubation. Site: right [facility] MethodistTransthoracic Echocardiogram Complete, (w Contrast, Strain and 3D if needed)2020-02-25 17:02:00Interface, Radiology Results In - 02/25/2020 5:03 PM [facility] Echocardiography Report [id number] [address], [place] [address] Pat.Name: ELSI CALLEJAS Pat.ID: [id number].Date: 02/25/2020 Refer.MD: JEREMY REY MD Exam Time: 2:15:00 PM Study Type:Routine Echo Height: 70in Weight: 238lb BSA: 2.25 m2 Age: 5 1955,64Y Sex: MALE BP: 121/57 HR: 66 bpm Sonogrphr: CATARINA Coronado RVS Pat. Stat.:Inpatient Room: [place] [address] Study Status:Final Echo Event ID:[id number] Order ID: [id number] Reason forStudy:HF - Re-eval of known HF (systolic or diastolic) witha change in clinical status or cardiac exam without a clearprecipitating change in medication or diet; Ventricular Function -Routine surveillance of ventricular function with known CAD an nochange in clinical status or cardiac examHistory / Clinical:Coronary Artery Disease, Diabetes, Hyperlipidemia,HypertensionProcedures: 2D Echo, Colorflow Doppler, Portable, Intravenous OptisonContrastRace: C SUMMARY: LV EF is normal. Estimated EF is 60-64%.RVsystolic function is normal.Normal prosthetic aortic valve velocity and gradient.LV filling pressures are elevated. FINDINGS: LV: LV size is normal. LV EF is normal. Overall wall motion is normal. Estimated EF is 60-64%.RV: RV size is mildly enlarged. RV systolic function is normal.LA: LA volume is mild to moderately enlarged.RA: RA size is normal.AO: Aortic root diameter is normal.STEVEN: No pericardial effusion.AV: Bioprosthetic aortic valve. A trace of aortic regurgitation. Normal prosthetic valve velocity and gradient. Surgical Prosthetic AV Doppler velocity index is 0.43 (normal>0.25).MV: No structural MV abnormalities noted. A trace of mitral regurgitation. PV: No structural PV abnormalities noted.TV: No structural TV abnormalities noted. Mild tricuspid regurgitation Luke: LV filling pressure is elevated.Other:Insufficient TR jet to estimate PA systolic pressure. MEASUREMENTS : 2DParasternal Long [place] Ao An 2.2 cm LVPWd 0.97 cm Ao Rtd 3.1 cm Index 1.4 cm/m2 LA Ds 4 cm IVSd 0.9 cm RWT0.38 LVIDd 5.1 cm Index 2.3 cm/m2 LV Mass 170g (122-174) LVIDs 2.9 cm LVM Index 75 g/m2 LV%fs 43 % LVOT 1.9 cm LA Sng Plane LA Area 27 cm2 (8.8-23.4)* LA Vol 93 ml Index 41 ml/m2 LA LngAx 6.3 cm RA Sng Plane RA Vol 58ml Index 26 ml/m2 RA LngAx 6.1 cm RA Area 20 cm2(8.3-19.5)*LVOT For Flow LVOT Area 2.9 cm2 DOPPLERAV For Flow/LILIA AV pkVel 279 cm/s (100-170)* AV TVI 65 cm AV mnVel 210 cm/s AVpkAcRt 8501 cm/s2 AV pkPG 31 mmHg AV DeRt 896 cm/s2 AV Mean G 21 mmHg AV Area 1.2 cm2 (3-5)* AV ET 312 msecAV AC 142 msec (83-118)* AV AC/ET 0.45 Aortic Valve AV DI0.43 LVOT For Flow LVOT TVI 28 cm LVOT CI 2.4 l/m/m2 LVOT SV 81 ml LVOTpkPG 5.2 mmHg LVOTpkVel 114 cm/s LVOTmnPG 3.7 mmHg LVOT CO 5.4 l/min HR 67 bpm LVOT SVi 36 ml/m2 Signed 02/25/2020 05:[address] [facility] lwetpod6621-27-00 12:28:34 Test Item Value Reference Range Interpretation Comments POC glucose (test code = 162 mg/dL 65-99 H Ope rator Name: [id number]) Julianne Li HDevice ID: [id number] able : [facility] Notified clod puller Interpretation (test Abnormal code = 99170-9) Jimenez [facility] 12 vkhu3679-87-54 12:11:43 Test Item Value Reference Range Interpretation Comments Ventricular rate (test 66 code = 253) Atrial rate (test code 66 = 255) UT interval (test code 188 = 266) QRSD interval (test 78 code = 260) QT interval (test code 452 = 264) QTC interval (test code 473 = 265) P axis 1 (test code = 46 267) QRS axis 1 (test code = 57 268) T wave axis (test code 5 = 270) EKG impression (test Sinus rhythm with code = 273) occasional premature ventricular complexes-Nonspecific T wave abnormality-Prolonged QT-Abnormal ECG-In automated comparison with ECG of 01-MAR-2019 23:41,-premature ventricular complexes are now present-Nonspecific T wave abnormality now evident in Anterior leads- [facility] MethodistBasic metabolic izkmh8507-82-34 08:22:03 Test Item Value Reference Range Interpretation Comments Sodium (test code = 2951-2) 139 135- 148 mEq/L Potassium (test code = 2823-3) 4.6 3.5- 5.0 mEq/L Chloride (test code = 2075-0) 105 98- 112 mEq/L CO2 (test code = 2027-9) 22 24- 31 mEq/L L Anion gap (test code = 59315-9) 12@ANIO 7- 15 mEq/L BUN (test code = 3094-0) 27 mg/dL 8-23 H Creatinine (test code = 2160-0) 1.27 mg/dL 0.7-1.2 H Glucose (test code = 2345-7) 127 mg/dL 65-99 H Calcium (test code = 46587-2) 9.2 mg/dL 8.8-10.2 Lab Interpretation (test code = Abnormal 26802-5) Gaona MethodistHepatic function qjdja2972-26-66 08:21:56 Test Item Value Reference Range Interpretation Comments Albumin (test code = 2.9 g/dL 3.5-5 L 1751-7) Total bilirubin (test 2.1 mg/dL 0-1.2 H code = 1974-2) Bilirubin direct (test 1.0 mg/dL 0-0.3 H code = 1967-7) Alkaline phosphatase 290 U/L 40-129 H (test code = 6768-6) Protein (test code = 6.6 g/dL 6.3-8.3 -[place] n 2885-2) 4.6-7.0 g /dL1 week 4.4-7.6 g/dL 7 months-1year 5.1-7.3 g/dL 1-2 years 5.6-7.5 g/dL>3 years 6.0-8.0 g/tV89-024 6.3-8. 3 g/dL ALT (test code = 1742-6) 71 U/L 5-50 H AST (test code = 1920-8) 105 U/L 10-50 H Lab Interpretation (test Abnormal code = 87798-3) Jimenez MethodistPhosphorus eqtjr0611-87-19 08:21:52 Test Item Value Reference Range Interpretation Comments Phosphorus (test code = 2777-1) 3.7 mg/dL 2.4-4.5 Jimenez MethodistProthrombin time with [id number] 08:05:19 Test Item Value Reference Range Interpretation Comments Prothrombin time (test 15.3 11.5- 14.5 sec H code = 5902-2) INR (test code = 1.2 [facility] 92719-8) Normalized Rati o (INR) is a therapeuti c monitoring tool for patients who ar e stable on oral anticoagulant t herapy. An INR of 2.0-3 .0 is suggested for d eep vein thrombosis/pulm onary embolism. Lab Interpretation Abnormal (test code = 81042-9) Jimenez PalomaresUS Abdominal Zhuujvl5100-08-29 21:01:27Hm Interface, Radiology Results [facility] - 02/24/2020 9:04 PM CSTEXAMINATION: US ABDOMINAL DOPPLERC LINICAL HISTORY: Portal vein thrombosis, Elevated LFTCOMPARISON: Hepatic ultrasound. MRI abdomen 02/22/2020 radiologyTECHNIQUE: Saenz scale, color Doppler and spectral waveform analysis of the hepaticvasculature.IMPRESSION:1. PORTAL VEINS: *Main portal vein: The main portal vein is patent. Portal vein velocity is 19.2 cm/sec. *Left Portal Vein: The left portal vein is patent.*Right Portal Vein:Thrombosed, better seen on recent MRI.2. HEPATIC VEINS: *Right Hepatic Vein: The right hepatic vein is patent.*Middle Hepatic Vein: The middle hepatic vein is patent.*Left Hepatic Vein: The left hepatic vein is patent.3. HEPATIC ARTERIES: *Right Hepatic Artery: The right hepatic artery is patent.*Left Hep atic Artery: The left hepatic artery is patent.4. IVC: The inferior vena cava is patent.5. SMV: Not well visualized6. SPLENIC ARTERY/VEINS: *Splenic Artery/Vein at Spleen: The splenic artery/vein at the spleen are patent.*Splenic Artery/Vein at Midline: Question partial occlusion of the splenic veinat the midline. Splenic artery is patent.Gaona ChristianityUS Vnzsomy7633-06-34 20:45:28 Interface, Radiology Results 02/24/2020 8:48 PM CSTEXAMINATION: US HEPATIC HISTORY: 64 years old Male. Cirrhosis, elevated LFT.COMPARISON: MRI abdomen 02/22/2020FINDINGS: Liver: Nodularliver contour. Heterogeneous parenchymal echogenicity coarsened hepatic echotexture. There are no focal hepatic lesions. There is no surface nodularity. Bile ducts: Common duct is not well visualized.Gallbladder: Normal in size. Wall thickness is 4.9 mm. No gallbladder stones. No pericholecystic fluid. Sonographic Owne's sign is not reportedVasculature: Hepatopedal flow within the portal veins. Thrombosis of the right portal vein, similar to recent MRI. Right kidney: No hydronephrosis in the visualized portions of the right kidney.IMPRESSION: 1. Nodular, cirrhotic liver.2. Thrombosis of the right portal vein, similar to recent MRI.3. Mild gallbladder wall thickening, likely reactive in the setting of chronic liver disease.[facility]-[id number] Methodac[facility] natriuretic ncfygku8054-24-92 06:52:01 Test Item Value Reference Range Interpretation Comments BNP (test code = 07474-8) 379 pg/mL 0-100 H Lab Interpretation (test code = Abnormal 64985-3) [facility] MethodistUrinalysis screen and microscopy, with reflex to culture 2020-02-23 19:50:25 Test Item Value Reference Range Interpretation Comments Specimen site (test code = Clean catch 7388706) Color, UA (test code = 5778-6) Linda Appearance, UA (test code = Clear 5767-9) Specific gravity, UA (test code = 1.024 1.001-1.035 5811-5) pH, UA (test code = 5803-2) 7.0 5.0-8.5 Protein, UA (test code = 90140-4) Negative Negative Glucose, UA (test code = 44320-5) Negative Negative Ketones, UA (test code = 2514-8) Negative Negative Bilirubin, UA (test code = Negative Negative 5770-3) Blood, UA (test code = 5794-3) Negative Negative Nitrite, UA (test code = 5802-4) Negative Negative Urobilinogen, UA (test code = 4.0 <2.0 A 73696-8) Leukocyte esterase, UA (test code Negative Negative = 5799-2) Epithelial cells, UA (test code = <1 /HPF 5787-7) WBC, UA (test code = 5821-4) <1 0- 1 /HPF RBC, UA (test code = 20944-0) 1 0- 5 /HPF Bacteria, UA (test code = None seen None seen 16264-5) Yeast, UA (test code = 95968-7) None seen Yeast with pseudohyphae, UA (test None seen code = 46421-7) Lab Interpretation (test code = Abnormal 30255-7) Jimenez PalomaresUrine kehvxsy9493-84-87 18:32:58 Test Item Value Reference Range Interpretation Comments Urine culture (test SEE COMMENT Bacteriu blake screen code = 3852739) negative. Jimenez SantiagoistCOVID-19 qualitative [id number] 16:28:49 Test Item Value Reference Range Interpretation Comments Interpretation (test Negative results do code = 6212940) not preclude 2019-nCoV infection and should not be used as the sole basis for treatment or other patient management decisions. Negative results must be combined with clinical observations, patient history, and epidemiological information. COVID-19 qualitative Not-Detected Not-Detected PCR result (test code = 74832-1) COVID-19 qualitative See link below for C ase Number: PCR (test code = PDF Lab Report [id number]) Jimenez SantiagoistCT Cervical Spine Wo Deavruty7102-09-87 13:46:08Hm Interface, Radiology Results 02/23/2020 1:49 PM CDTEXAMINATION: CT CERVICAL SPINE WO CONTRASTCLINICAL HISTORY: fall amsCOMPARISON: NoneTECHNIQUE: Axial noncontrast enhanced images of the cervical spine were obtained with coronal and sagittal reconstructed algorithms. CT imaging was performed with iterative reconstruction techniques and/or automated exposure control to reduce radiation dose.FINDINGS:No fracture or acute subluxation is identified.The paraspinous soft tissues are unremarkable.Mild multilevel cervical spondylosis is noted. There is ankylosis of C2-3. Moderate foraminalstenosis is noted in the left at C6-7.No incidental thyroid lesion is identified.IMPRESSION: No acute abnormality of the cervical spine is identified.[facility]-[id number] MethodistCT Head Wo Xvqgzenl2610-48-85 13:44:17Hm Interface, Radiology Results 02/23/2020 1:47 PM CDTEXAMINATION: CT HEAD WO CONTRASTCLINICAL HISTORY: fall amsCOMPARISON: NoneTECHNIQUE: Noncontrast CT of the brain was performed from th e skull base to the vertex. Both soft tissue and bone reconstruction algorithms are interpreted.CT imaging was performed with iterative reconstruction techniques and/or automated exposure control to reduce radiation dose.FINDINGS:No intracranial hemorrhage, extra-axial collection, or mass-effect is seen. No acute cortical infarct is identified. No hyperdense vessel is seen.No fracture is seen.No air-fluid level is seen in the visualized portions of the paranasal sinuses. Mastoid air cells are clear.IMPRESSION:No acute intracranial abnormality identified.[facility]-[id number] MethodistXR Wrist 3+ Vw Yxab3890-25-36 13:42:54Hm Interface, Radiology Results 02/23/2020 1:46 PM CDTEXAMINATIONS: XR WRIST 3 VW LEFTXR HAND 3 VW LEFTCLINICAL HISTORY: fall swellingCOMPARISON: None available. FINDINGS: 1. Radiographs of the left wrist and left hand are submitted for interpretation.2. Approximately age and gender appropriate mineralization of the osseous structures. 3. Normal alignment of the left wrist without acute fracture or dislocation.4. Mild irregularity at the base of the fourth metacarpal this could represent a nondisplaced fracture. There is soft tissue swelling of dorsum of the hand. Correlation with point tenderness and advanced imaging may be indicated.5. No focal soft tissue abnormality. IMPRESSION: Possible nondisplaced fracture the base of the fourth metacarpal.1D2RAD_PS04[place] MethodistXR Hand 3+ Vw Twrh4749-89-29 13:42:54Hm Interface, Radiology Results 02/23/2020 1:46 PM CDTEXAMINATIONS: XR WRIST 3 VW LEFTXR HAND 3 VW LEFTCLINICAL HISTORY: fall swellingCOMPARISON: None available. FINDINGS: 1. Radiographs of the left wrist and left hand are submitted for interpretation.2. Approximately age and gender appropriate mineralization of the osseous structures. 3. Normal alignment of the left wrist without acute fracture or dislocation.4. Mild irregularity at the base of the fourth metacarpal this could represent a nondisplaced fracture. There is soft tissue swelling of dorsum of the hand. Correlation with point tenderness and advanced imaging may be indicated.5. No focal soft tissue abnormality. IMPRESSION: Possible nondisplaced fracture the base of the fourth metacarpal.1D2RAD_PS04[facility] MethodistLipase qttrb8595-12-18 13:31:36 Test Item Value Reference Range Interpretation Comments Lipase (test code = 3040-3) 52 U/L 13-60 [facility] MethodistAmmonia vfegy0751-02-00 13:22:39 Test Item Value Reference Range Interpretation Comments Ammonia (test code = 1841-6) 92 umol/L 16-60 H Lab Interpretation (test code = Abnormal 26675-3) [facility] MethodistXR Chest 1 Vw Sbyrhmcx1761-35-13 13:21:05Hm Interface, Radiology Results 02/23/2020 1:24 PM CDTEXAMINATION: XR CHEST 1 VW PORTABLECLINICAL HISTORY: amsCOMPARISON: 06/12/2079IMPRESSION:Heart size is enlarged. The patient has undergone median sternotomy. Bilateral perihilar opacities are reflective of pulmonary edema. A tiny right-sided pleural effusion is suspected. There is no significant left pleural effusion. There is no pneu mothorax. No acute osseous abnormality is present. Degenerative changes are present in the right shoulder.[facility]-[id number] MethodistSplint Application 2020-02-23 12:31:56Claudio Perez MD 03/12/2020 8:35 AMSplint ApplicationPerformed by: Claudio Perez MDAuthorized by: Claudio Perez MD Consent: Consent obtained: Verbal Consent given by: PatientRisks discussed: Skin discoloration, distal paresthesia, pain and swelling Alternatives discussed: No treatmentPre-procedure details: Sensation: NormalProcedure details: Laterality: Left Location: Hand Hand: L hand Cast type: Short arm Splint type: static. Supplies: Ysigw-OrrbaBlwa-zs ocedure details: Pain: Improved Sensation: Normal Patient tolerance of procedure: Tolerated well, no immediate complicationsRevere MethodistMRI Abdomen W Wo Zprqgpcf6287-09-44 10:28:09Hm Interface, Radiology Results 02/22/2020 10:31 AM CDTEXAMINATION: MRI ABDOMEN W WO CONTRAST HISTORY: K74.60 Unspecified cirrhosis of liver, C25.0 Malignant neoplasm of head of pancreas, K74.60 UNSPECIFIED CIRRHOSIS OF LIVER C25.0 MALIGNANT NEOPLASM OF HEAD OF PANCREASTECHNIQUE: Multiplanar MR examination of the abdomen was performed before and after administration of intravenous contrastwith multiphase acquisitions according to standard protocol.COMPARISON: None.FINDINGS: Liver: Cirrhotic morphology. A geographic hyperenhancement throughout the anterior section of the right liver lobe, compatible with expected post radiotherapy change. Postcontrast images are degraded by motion, limiting evaluation. Treated lesion in liver segment 8 has likely decreased in size, approximately 2.5 x 2.1 cm previously 3.9 x 3.0 cm (series 370, image 461). No clear evidence of enhancing or diffusion restricting disease.Biliary Tree: Unchanged mildly ectatic peripheral bile ducts in the right anteriorliver segment adjacent to the treated lesion. No new biliary ductal dilatation. Gallbladder is unrema rkable.Pancreas: Unremarkable. No ductal dilatation. Spleen: Unchanged enlargement, 15 cm craniocaudal.Adrenal: Unremarkable. Kidneys: The kidneys enhance symmetrically. There are multiple non-enhancing cystic lesions within the renal parenchyma consistent with benign cysts. No hydronephrosis or solid mass.Bowel: Unremarkable.Lymph nodes: Unchanged prominent periportal lymph nodes, the largest between the pancreatic head and portal vein 1.6 in short axis (36/23). No new lymphadenopathy.Vessels: Early opacification of the right middle vein, indicative of some degree of systemic shunting. Right unchanged right portal vein thrombosis. Left portal vein remains patent. Unchanged mild narrowing of the main portal vein. Hepatic veins and splenic vein patent .Prominent splenorenal shunt measuring up to 2.1 cm.Skeleton: S/p median sternotomy.There are multilevel degenerative spinal changes. No suspicious osseous lesion.Other: Trace volume of free intraperitoneal fluid in the upper abdomen. Small right pleural effusion.IMPRESSION: 1.S/p Y-90 of segment 8 with right branch portal vein invasion. Mass appears smaller without clear evidence of residual disease. No new suspicious liver lesion.2.Unchanged complete right portal vein and partial common portal vein thrombosis. No discrete tumor thrombus visualized.3.Unchanged prominent periportal/peripancreatic lymph nodes. No new adenopathy.4.Unchanged splenomegaly and prominent splenorenal shunt.5.Increased small volume ascites and small right pleural effu barrie.[id number] MethodistPOC zhlfbyesgg8793-55-38 08:17:55 Test Item Value Reference Range Interpretation Comments POC creatinine (test 1.3 mg/dl 0.7-1.2 H Operato r Name: code = 93614-3) Charlotte CossieDevice ID : [id number] Lab Interpretation Abnormal (test code = 98924-8) Jimenez [facility] Spect Liver Iupozyj5892-08-07 16:19:43 Interface, Radiology Results 01/02/2020 4:22 PM CDTProcedure: NM Y90 MICRO SPHERES THERAPYClinical History: C22.0 Liver cell carcinoma, HCC Comparison: MRI abdomen 11/20/2019Technique:An intra-arterial catheter was advanced into the right hepatic artery by Interventional Radiology at this hospital. 48 mCi of L43-Saegsxpsuqjp were administered into a branch of the right hepatic artery. The following day the patient was brought to the Nuclear Medicine department for SPECT/CT imaging of the abdomen, followed by planar imaging of the abdomen and chest.Findings:Marked uptake is present throughout segment 8. No uptake in the other abdominal organs. Pulmonary uptake is very mild, well within acceptable limits.IMPRESSION:Successful targeting of R65-Lgewvyzqbxgr to segment 8.[facility]-[id number] [facility] Y90 Micro Spheres Cqhdvhm5284-45-85 16:19:31 Interface, Radiology Results 01/02/2020 4:22 PM CDTProcedure: NM Y90 MICRO SPHERES THERAPYClinical History: C22.0 Liver cell carcinoma, HCC Comparison: MRI abdomen 11/20/2019Technique:An intra-arterial catheter was advanced into the right hepatic artery by Interventional Radiology at this hospital. 48 mCi of W68-Cwwsyohmvzag were administered into a branch of the right hepatic artery. The following day the patient was brought to the Nuclear Medicine department for SPECT/CT imaging of the abdomen, followed by planar imaging of the abdomen and chest.Findings:Marked uptake is present throughout segment 8. No uptake in the other abdominal organs. Pulmonary uptake is very mild, well within acceptable limits.IMPRESSION:Successful targeting of Y90- Theraspheres to segment 8.[facility]-[id number] MethodistIR Radioembolization 2020-01-02 07:58:03Hm Interface, Radiology Results 01/02/2020 8:01 AM CDTPhase II Y-90 01/01/2020Indication: 54-year-old man with infiltrative hepatocellular carcinoma.Pre-Procedure Diagnosis: Hepatocellular carcinomaPost- procedure Diagnosis: Hepatocellular carcinomaOperator: John BacaPersonal protective equipment: Surgical Mask; Sterile Surgical Gown; Sterile Gloves; Lead Glasses. Patient Mask: YesLevel of anesthesia: Moderate SedationMedications used: 1% Lidocaine IV Fentanyl and IV VersedAnesthesia administration: Pulse oximetry, heart rate, and blood pressure were continuously monitored by a radiology nurse and the performing provider.Duration of intra-service rdmb-py-ozae anesthesia/sedation: 64 minutesRadiation Dose: 828 mGy (reference air kerma (ka, r))Estimate blood loss: <5 mL Blood administered: NoneComplications: NoneImplants/Grafts: NoneSpecimen: NoneProcedure:Informed consent was obtained and the patient placed supine. A timeout was performed. Preliminary ultrasound of the right common femoral artery was performed. The right groin was prepped and draped in standard sterile fashion.Using real-time ultrasound guidance a 21-gauge vascular needle was used to access the right common femoral artery. A sonographic image was stored in the electronic medical record. The needle was exchanged for 5-Belgian sheath.Selective angiograms were performed from the following locations using either a5-Belgian De Leon B catheter or 2.4 Progreat microcatheter:Celiac axis (1st order)Right hepatic artery ( >3rd order)Anterior division sectoral branch (>3rd order)Right common femoral arteryContrast-enhanced coned beam CT could not be performed because of hardware failure.Following confirmation of catheter positioning radioisotope administration was performed as follows:Radioisotope: Yttrium-90 glass microspheresCatheter position for administration: Anterior division sectoral branch Administration and point: Complete delivery of dose.Angiographic endpoint: Not applicableDose: Desire dose target volume: 120 Gy; 1.784 GBq vial with administration of 48 mCi for a dose of 117 Gy.Hemostasis of the right common femoral artery was achieved with a Mynx vascular closure device.The patient tolerated the procedure well. There were no immediate complications.Findings:Common femoral artery ultrasound: Patent vessel with normal flow.Common femoral artery angiogram: NormalCeliac axis angiogram: Unchanged arterial anatomy from phase I.Selective angiograms listed above are unchanged from the phase I, with infiltrative tumor and associated tumor thrombus predominant in segment 8.Impression:Successful radioisotope administration from the anterior division sectoral branch supplying segment 8 and a small portion of segment 5Recommendations or Plan:MRI in 2-3 months to evaluate treatment response.Jimenez PalomaresHemoglobin [id number] 07:44:26 Test Item Value Reference Range Interpretation Comments Hemoglobin A1C (test 5.7 % 4-5.6 H HbA1c c utoffs for code = 22037-6) diagnosing diabetes:4.0% - 5.6% = normal5.7% - 6.4% = increased risk for diabetes (prediabetes)9> =6.5% = easlsjgz9Rxxn s for glycemic contro l (ADA 2016)< 7.0% Ta rget for non adults with melanie betes. More or less stringent targe ts may be appropriate for individual tim ents. <7.5% Target for Children and adolescents wit h type 1 diabetes. Lab Interpretation (test Abnormal code = 14905-7) Jimenez PalomaresVmhypzhpoC66005-59-59 06:49:22 Test Item Value Reference Range Interpretation Comments T4 (test code = 3026-2) 6.5 ug/dL 4.5-11.7 Jimenez PalomaresVitamin D 25 hydroxy bvlyo0594-64-48 05:58:49 Test Item Value Reference Range Interpretation Comments Vitamin D, 25-hydroxy 26.6 ng/mL 30-150 L This a ssay reports (test code = 1989-) the sum of 25-hydroxy jose eduardo min D3 and 25-hydro xy vitamin D2. Reference range :0-17 years:Deficienc y: less than 20ng/mLOptimum level: greater than or equal to 20 ng/mL.18 years and older:Deficienc y: less than 20ng/mLInsuffic iency : 20-29 ng/mLOp timum Level: 30-80 ng/mLThe assay reportable rang e is 3.4 155.9 ng/m L. Levels higher t stein 150 ng/mL may b e associated with toxicity.If tox icity is clinically suspected and t he reported result is >155.9 ng/mL,co ntact lab for alterna tive methods to obta in a definitive lev el.If separate quantitation of 25-hydroxy jose eduardo min D3 and 25-hydro xy vitamin D2 is needed, please contact lab for alternative met hods. Lab Interpretation Abnormal (test code = 44157-7) [facility] Oefeceb4949-88-29 17:14:35Hm Interface, Radiology Results 12/21/2019 5:17 PM CDTProcedure: NM LUNG PERFUSION IMAGINGClinical History: C22.0 Liver cell carcinoma, HCC Comparison: MRI abdomen 11/20/2019Technique:An intra-arterial catheter was advanced into the right hepatic artery by Interventional Radiology at this hospital. 7 mCi of Tc-99m-MAA were administered into segment 8. The patient was brought to the Nuclear Medicine department for SPECT/CT imaging of the abdomen, followed by planar imaging of the abdomen and chest.Findings:Marked uptake in segment 8. No uptake in the other abdominal organs.Pulmonary shunting = 7% (optimal is less than 10%)IMPRESSION:1.Targeting of tracer to segment 8.2.Pulmonary shunting is well within acceptable limits. No need for dose reduction during therapy.[facility]-[id number] MethodistIR 3D Recon Slices Snapshots [facility] 2019-12-21 13:17:16Non-Reportable/No report needed.[facility] MethodistCT Chest Wo Iwgppuxe8176-67-05 15:07:51Hm Interface, Radiology Results 12/10/2019 3:11 PM CDTEXAMINATION:CT CHEST WO CONTRASTCLINICAL HISTORY:C22.0 Liver cell carcinoma, liver cancerTECHNIQUE:Multiple axial images of the chest were obtained without intravenous contrast. The lack of intravenous contrast reduces the sensitivity of detecting solid organ disease and evaluating vasculature. Sagittal and coronal computerized reformatted images were also obtained. All CT images were acquired using low-dose technique with automated exposure control.COMPARISON:None.FINDINGS:1.Heart size is normal. Median sternotomy wires overlie themidline. Postsurgical changes relating to aortic annuloplasty and ascending aortic aneurysm repair. No mediastinal lymphadenopathy.2.A suspicious pulmonary mass or opacity is not identified. The airways are patent without peribronchial wall thickening or mucous plugging. No pleural or pericardial effusion.3.Subpleural calcified granuloma in the right lower lobe measures 3 mm.4.Limited images to the upper abdomen demonstrates cirrhosis and splenomegaly.5.Osseous structures are intact with degenerative changes involving the thoracic spine.IMPRESSION:1.No evidence to suggest metastatic disease.[id number] [facility] Whole [id number] 14:37:00Hm Interface, Radiology Results 12/10/2019 2:40 PM CDTPROCEDURE: NM BONE SCAN WHOLE BODYINDICATION: Liver cancer. Hepatoma. COMPARISON: CT scan of the abdomen and pelvis 10/19/2019, chest CT performed on same day. TECHNIQUE: Approximately three hours after the IV administration of 25 mCi of Tc-99m labeled MDP, routine whole body planar bone scanning was performed in the anterior and posterior projections. FINDINGS: No suspicious uptake is seen to suggest presence of osseous metastatic disease. DJD is noted in the shoulders, spine, SI joints, hips, and knees. Prior midline sternotomy. IMPRESSION: 1. No scintigraphic evidence of osseous metastatic disease.[facility]-[id number] MethodistCancer antigen [id number] 12:17:33 Test Item Value Reference Range Interpretation Comments CA 19-9 (test code 27 U/mL 0-35 The Luigi Dylan 8000 CA19-9 = 1006) immunoassay was used. Results obtaine d with different assay methods or kits should not be used interchangeably and may be different. [place] [facility] Abdomen WWO Contrast, Pelvis W [id number] 09:40:38 EXAMINATION: CT ABDOMEN WWO CONTRAST PELVIS W CONTRAST CLINICAL HISTORY: 64 yearsMale R97.8 Other abnormal tumor markers, K74.60 Unspecified cirrhosis of liver, CIRRHOSIS TECHNIQUE: Multiple axial images of the abdomen and pelvis were obtained following intravenous administration of iodinated contrast. Precontrast series of the abdomen were also performed. Sagittal and coronal computerized reformatted images were also obtained. CT imaging was performed with iterative reconstruction techniques and/or automated exposure control to reduce radiation dose. COMPARISON: CT abdomen pelvis 06/08/2018 IMPRESSION: LOWER CHEST:Visualized lower thorax:Lung bases: No significant pleural effusion. Calcified granuloma right lower lobe.Lower mediastinum: Cardiac size is normal. No pericardial effusion. Partially visualized median sternotomy postoperative changes. Retained epicardial pacing leads. Atherosclerotic calcification of the coronary arteries. ABDOMEN:Upper abdominal organs: Liver: There is a macron odular contour to the liver with hypertrophy of the left hemiliver and caudate lobe and widening of the periportal space. The liver measures 13 cm in craniocaudal dimension at the midclavicular line. 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 1.1 cm hypoenhancing focus in hepatic segment 8 (series 4, image 30), not definitely visualized on the prior study, LR 3. Gallbladder: Nondistended, contains cholelithiasis. Spleen: Enlarged, measures 16 cm in craniocaudal dimension.Pancreas: Normal.Adrenal Glands: Normal.Kidneys: 3 cm cyst in the right lateral kidney. Focal cortical defect left kidney inferior pole. No hydronephrosis. No renal or ureteralcalculi. Bowel and mesentery: Large and small bowel are normal in caliber without focal wall thickening or mesenteric fat stranding. Ventral abdominal hernia mesh repair markers. Normal appendix. The bowel is otherwise normal.No free intraperitoneal gas or fluid. Vasculature: Abdominal aorta is of normal caliber. Celiac artery, superior and inferior mesenteric arteries, superior mesenteric and portal veins appear patent. Mild calcified and non-calcified atherosclerotic disease of the abdominal aorta and branch vessels. Again noted partial thrombosis of the portosplenic confluence extending intothe main and right portal veins. Large perisplenic collaterals. Small paraesophageal varices.Lymph nodes: Enlarged periportal lymph nodes. For reference, there is a 2.1 x 1.3 cm periportal lymph node (series 5, image 49). There is an enlarged 2.7 x 1.9 cm pericaval lymph node (series 5, image 63). PELVIS:Urinary bladder: Normal. Lymph nodes: No pelvic lymphadenopathy. MUSCULOSKELETAL: No suspicious lytic or blastic osseous lesions. The superficial soft tissues are unremarkable. Age appropriate deg enerative changes of the spine. L4 inferior endplate Schmorl's node. SUMMARY: 1. 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 Nodular, cirrhotic liver with sequelae of portal hypertension including splenomegaly, perisplenic and paraesophageal varices.3. Increased size of periportal and pericaval lymph nodes, greater than expected forreactive lymphadenopathy, possibly sequela of chronic liver disease, however metastatic disease is not excluded.4. 1.1 cm hypoenhancing lesion in hepatic segment 8, LI-RADS 3, indeterminate. Follow-up with liver MRI or CT in 6 months can be performed to assess stability, if indicated clinically.5. Chol elithiasis. Findings of portal thrombosis were discussed by phone with Dr. Sargent by Dr. Caro at 10/19/2019 9:30 AM.[facility]-[id number] Christianity
[2020-04-18 15:27] LABS: Protime INR 1.13
--- NOTE | 2020-04-18 15:37 | RAD REPORT ---
EXAM DESCRIPTION: RAD - Chest Single View - 04/18/2020 3:30 pm CLINICAL HISTORY: AMS Chest pain. COMPARISON: No comparisons FINDINGS: Portable technique limits examination quality. Moderate bilateral pulmonary opacities are present which may represent pulmonary edema or pneumonia. The heart is upper limit normal in size. Sternotomy wires present.
[2020-04-18 15:52] LABS: Albumin 2.5 g/dL (3.4-5.0); Bilirubin Direct 1.9 mg/dL (0-0.2); Bilirubin Total 2.6 mg/dL (0.2-1.0)
[2020-04-18 16:01] LABS: Urine Blood 1+ (NEG); Urine Glucose NEGATIVE (NEG); Urine Protein 2+ (NEG)
[2020-04-18 16:02] LABS: Absolute Lymphocytes (CBC) 2.6 K/uL (0.7-4.9); Basophils % 0.6 % (0-1.3); Hematocrit 28.7 % (39.6-49.0); Lymphocytes % 30.5 % (15.3-44.8); MPV 11.8 fL (7.6-11.3); RBC Red Blood Cell Count 2.95 M/uL (4.33-5.43)
[2020-04-18 16:18] LABS: Potassium 7.2 mmol/L (3.5-5.1)
[2020-04-18 16:53] LABS: Arterial Blood Carboxyhemoglob 1.8 % (0-1.5); Blood Gas Oxyhemoglobin 96.2 % (94-97); Blood O2 Saturation 98.8 % (92-98.5)
[2020-04-18 16:54] LABS: Urine Bacteria 20-50 /HPF (NONE SEEN)
[2020-04-18 16:55] LABS: Urine Amorphous Sediment 3+ /HPF (NONE SEEN); Urine Mucus 1+ /HPF (NONE SEEN); Urine Urothelial Cells <5 /HPF (NONE SEEN)
[2020-04-18] MEDS ORDERED: NA CHLORIDE 0.9% 1,000 ML ONE ×3 (16:59→18:43)
[2020-04-18] MEDS ORDERED: INSULIN -REGULAR HUMAN 50 UNIT/0.5 ML ML ONE (17:09)
[2020-04-18] MEDS ORDERED: CALCIUM GLUCONATE 1 GM IVPB 1 GM/50 ML BAG IV ONE (17:10)
[2020-04-18] MEDS ORDERED: ALBUTEROL 2.5 MG/3 ML NEB SOL ONE (17:11)
[2020-04-18] MEDS ORDERED: D50W 50 ML IV ONE (17:12)
[2020-04-18] MEDS ORDERED: LACTULOSE 20 GM/30 ML UCUP ONE ×2 (17:13→17:29)
[2020-04-18] MEDS ORDERED: SODIUM BICARB 50 MEQ/50ML VIAL ONE (17:34)
[2020-04-18] MEDS ORDERED: CEFTRIAXONE/SWI 1gm 1 GM/10 ML SYR ONE (17:34)
--- NOTE | 2020-04-18 18:56 | RAD REPORT ---
EXAM DESCRIPTION: CT - Head Brain Wo Cont - 04/18/2020 6:00 pm CLINICAL HISTORY: MENTAL STATUS CHANGE Headache, drowsiness COMPARISON: No comparisons TECHNIQUE: All CT scans are performed using dose optimization technique as appropriate and may inclu de automated exposure control or mA/KV adjustment according to patient size. FINDINGS: No intracranial hemorrhage, hydrocephalus or extra-axial fluid collection.No areas of brai n edema or evidence of midline shift. The paranasal sinuses and mastoids are clear. The calvarium is intact. IMPRESSION: No acute intracranial abnormality.
--- NOTE | 2020-04-18 19:03 | RAD REPORT ---
EXAM DESCRIPTION: CT - Chest Abd Pelvis Wo Con - 04/18/2020 6:00 pm CLINICAL HISTORY: Chest and abdomen pain. AMS, right flank pain COMPARISON: No comparisons TECHNIQUE: A limited noncontrast study was performed. All CT scans are performed using dose optimization technique as appropriate and may include automated exposure control or mA/KV adjustment according to patient size. FINDINGS: There is moderate respiratory motion artifact, limiting assessment. Several small nodular foci are present in the posterior segment of the left upper lobe, incompletely assessed. Small subple ural area of nodularity also present in the right lung base. Small bilateral pleural effusion. Sterno giacomo wires present. Moderate liver cirrhosis is present. Limited parenchymal assessment of the liver due to lack of IV co ntrast. Mild ascites. Moderate splenomegaly. Small gallstones are present in the gallbladder. The hurst creas, adrenal glands normal. Exophytic cyst measuring 3 cm from the right kidney noted. No stone or hydronephrosis. No bowel obstruction, free air, free fluid or abscess. Normal appendix. No pathologic lymphadenopath y in the abdomen or pelvis. No lytic or blastic bone lesion identified. IMPRESSION: Small bilateral pleural effusions are seen with mild interstitial pulmonary edema likely present.Small collection of nodules is present in the posterior segment left upper, incompletely ass essed due to significant respiratory motion artifact. Moderate liver cirrhosis is seen with moderate splenomegaly and mild ascites. Cholelithiasis.
[2020-04-18 19:46] LABS: Blood Morphology Comment NOT SEEN (NOT SEEN); Platelet Estimate ADEQ; White Blood Cell Scan OK (OK)
[2020-04-18] MEDS ORDERED: DOBUTAMINE 250 MG/250 ML BAG IV ONE (20:02)
--- NOTE | 2020-04-18 20:38 | ER ---
Nurse's Notes [facility] Name: Silvestre Schmid Age: 64 yrs Sex: Male : 1955 Arrival Date: 04/18/2020 Time: 14:20 Bed 15 Private MD: Diagnosis: Altered mental status, unspecified;Urinary tract infection, site not specified;Acute kidney failure;Dehydration;Diarrhea, unspecified;Encephalopathy, unspecified-hepatic;Acute pancreatitis Presentation: 04/18 14:21 Chief complaint: EMS states: PT HX of Liver Cancer and Liver Cirrhosis undergoing ca1 Immunotherapy from MD Kaminski. Last night, started Loose stool, vomiting and dry heaving. Last seen normal today at 0600, he slept til 1230 today, and is now oriented only to person, answers NO to questions. VS 110/43, HR 53, 99% RA, BGL 94, NSR. Coronavirus screen: diarrhea, nausea, vomiting. Client presents with at least one sign or symptom that may indicate coronavirus-19. Standard/surgical mask placed on the client. Provider contacted for isolation considerations. Ebola Screen: Patient negative for fever greater than or equal to 101.5 degrees Fahrenheit, and additional compatible Ebola Virus Disease symptoms Patient denies exposure to infectious person. Patient denies travel to an Ebola-affected area in the 21 days before illness onset. No symptoms or risks identified at this time. Initial Sepsis Screen: Does the patient meet any 2 criteria? No. Patient's initial sepsis screen is negative. Does the patient have a suspected source of infection? No. Patient's initial sepsis screen is negative. Risk Assessment: Do you want to hurt yourself or someone else? Patient reports no desire to harm self or others. Onset of symptoms was April 18, 2020. Care prior to arrival: Medication(s) given: Normal saline infusion, 500 mL, IV initiated. 20 GA, in the right wrist, Glucose check: 94. 14:21 Acuity: GAUDENCIO 2 ca1 14:21 Method Of Arrival: EMS: [place] [id number] Triage Assessment: 14:21 General: Appears in no apparent distress. Behavior is drowsy. Pain: Unable to use pain ca1 scale. Patient is disoriented. Neuro: Level of Consciousness is confused, lethargic, Oriented to none. Cardiovascular: Heart tones S1 S2 present Capillary refill < 3 seconds Patient's skin is warm and dry. Rhythm is sinus rhythm. Respiratory: Airway is patent Respiratory effort is even, unlabored, Respiratory pattern is regular, symmetrical. GI: Abdomen is round non-distended, Bowel sounds present X 4 quads. Abd is soft and non tender X 4 quads. : No signs and/or symptoms were reported regarding the genitourinary system. Derm: Skin is intact, is healthy with good turgor, Skin is pink, warm \T\ dry. Musculoskeletal: Circulation, motion, and sensation intact. Capillary refill < 3 seconds. Historical: - Allergies: 14: No Known Allergies; ca1 - Home Meds: 14:31 pantoprazole 40 mg oral TbEC 1 tab once daily [Active]; furosemide 40 mg Oral tab 1.5 ca1 tabs 2 times per day [Active]; spironolactone 25 mg Oral tab 1 tab once daily [Active]; metoprolol tartrate 75 mg Oral tab 1 tab 2 times per day [Active]; lisinopril 5 mg Oral tab 1 tab once daily [Active]; Tresiba FlexTouch U-100 100 unit/mL (3 mL) subcutaneous inpn [Active]; Repatha SureClick 140 mg/mL subcutaneous pnij 1 mL every 2 wks [Active]; aspirin 325 mg Oral tab 1 tab once daily [Active]; Vitamin B 100 Complex [Active]; hydroxyzine HCl 50 mg Oral tab [Active]; - PMHx: 14:31 Cirrhosis; Liver Cancer; Hypertension; Diabetes - IDDM; ca1 - Immunization history:: Adult Immunizations unknown. - Social history:: Smoking status: unknown. Screenin:26 Abuse screen: Denies threats or abuse. Denies injuries from another. Nutritional ca1 screening: No deficits noted. Tuberculosis screening: No symptoms or risk factors identified. Fall Risk IV access (20 points). Total Muñiz Fall Scale indicates Low Risk Score (25-44 pts). Fall prevention measures have been instituted. Side Rails Up X 2 As available Patient and Family Educated on Fall Prevention Program and strategies. Assessment: 14:26 Reassessment: see triage notes. ca1 15:30 Reassessment: Patient appears in no apparent distress at this time. No changes from ca1 previously documented assessment. at bedside. 16:30 Reassessment: Patient appears in no apparent distress at this time. No changes from ca1 previously documented assessment. 17:30 Reassessment: Patient appears in no apparent distress at this time. No changes from ca1 previously documented assessment. 18:30 Reassessment: Patient appears in no apparent distress at this time. No changes from ca1 previously documented assessment. 19:30 Reassessment: Patient appears in no apparent distress at this time. No changes from ca1 previously documented assessment. 20:30 Reassessment: Patient appears in no apparent distress at this time. No changes from ca1 previously documented assessment. 20:30 Reassessment: VO Dr. Ryan restraints for Central Line insertion. Continued restrain ca1 on R arm to prevent Pt from pulling central on the R femoral. 20:30 General: Appears in no apparent distress. Behavior is combative, Pt trying pull out ca1 central line at this time. 21:10 Reassessment: Patient appears in no apparent distress at this time. No changes from ca1 previously documented assessment. 22:10 Reassessment: Patient appears in no apparent distress at this time. No changes from ca1 previously documented assessment. Vital Signs: 14:21 BP 102 / 56; Pulse 71; Resp 18 S; Temp 97.3(TE); Pulse Ox 96% on R/A; ca1 15:30 BP 101 / 90; Pulse 72; Resp 16 S; Pulse Ox 100% on R/A; ca1 16:30 BP 63 / 26; Pulse 57; Resp 19 S; Pulse Ox 100% on R/A; ca1 16:45 BP 115 / 39; Pulse 74; Resp 19 S; Pulse Ox 100% on R/A; ca1 17:30 BP 96 / 37; Pulse 84; Resp 15 S; Pulse Ox 100% on R/A; ca1 17:45 BP 103 / 39; Pulse 87; Resp 16 S; Pulse Ox 100% on R/A; ca1 18:00 BP 134 / 95; Pulse 94; Resp 18 S; Pulse Ox 100% on R/A; ca1 18:22 BP 117 / 49; Pulse 92; Resp 20 S; Pulse Ox 100% on R/A; ca1 18:45 BP 125 / 52; Pulse 86; Resp 15 S; Pulse Ox 100% on R/A; ca1 19:15 BP 98 / 43; Pulse 93; Resp 15 S; Pulse Ox 100% on R/A; ca1 19:35 BP 78 / 41; Pulse 75; Resp 15 S; Pulse Ox 100% on R/A; ca1 19:45 BP 81 / 45; Pulse 76; Resp 18 S; Pulse Ox 100% on R/A; ca1 20:00 BP 99 / 72; Pulse 96; Resp 20 S; Pulse Ox 100% on R/A; ca1 20:15 BP 118 / 45; Pulse 89; Resp 19 S; Pulse Ox 100% on R/A; ca1 20:30 BP 99 / 82; Pulse 95; Resp 20 S; Pulse Ox 100% on R/A; ca1 20:34 Weight 113.4 kg (R); ca1 20:37 BP 97 / 58; Pulse 89; Resp 22 S; Pulse Ox 100% on R/A; ca1 20:50 BP 94 / 42; Pulse 100; Resp 21 S; Pulse Ox 100% on R/A; ca1 21:10 BP 99 / 61; Pulse 99; Resp 20 S; Pulse Ox 100% on R/A; ca1 21:48 BP 99 / 39; Pulse 53; Resp 16 S; Pulse Ox 100% on R/A; ca1 22:00 BP 89 / 36; Pulse 81; Resp 16 S; Pulse Ox 100% on R/A; ca1 22:15 BP 98 / 55; Pulse 80; Resp 16 S; Pulse Ox 100% on R/A; ca1 Peter Coma Score: 16:30 Eye Response: to pain(2). Verbal Response: inappropriate words(3). Motor Response: ca1 withdraws from pain(4). Total: 9. 19:00 Eye Response: to pain(2). Verbal Response: inappropriate words(3). Motor Response: ca1 withdraws from pain(4). Total: 9. 22:00 Eye Response: to voice(3). Verbal Response: confused(4). Motor Response: withdraws from ca1 pain(4). Total: 11. ED Course: 14:20 Patient arrived in ED. ca1 14:21 Arm band placed on right wrist. ca1 14:25 Triage completed. ca1 14:26 Patient has correct armband on for positive identification. Placed in gown. Bed in low ca1 position. Call light in reach. Side rails up X2. personnel monitor on. Pulse ox on. NIBP on. Warm blanket given. 14:31 Maintain EMS IV. Dressing intact. Good blood return noted. Site clean \T\ dry. Gauge \T\ ca 1 site: 20G R hand. 14:35 Amilcar Trimble NP is PHCP. pm1 14:35 Celestine Ty MD is Attending Physician. pm1 14:55 Taryn Nash, JAELYN is Primary Nurse. ca1 15:15 COVID swab sent to lab. Flu and/or RSV swab sent to lab. jp3 15:29 Chest Single View XRAY In Process Unspecified. EDMS 15:53 Straight cath inserted, using sterile technique, 18 Fr. Specimen obtained. Returned ca1 cloudy urine. Patient tolerated well. 18:00 CT Head Brain wo Cont In Process Unspecified. EDMS 18:00 Chest Abd Pelvis Wo Con In Process Unspecified. EDMS 19:18 Reached out to [facility] to provide them with information on the pt and got contact tt3 information for Dr. Sargent. Passed information on to provider Amilcar Trimble NP. 19:35 Initiated transfer at [facility] with Brinda. Stated she would check on beds and call tt3 back. 20:03 Brinda stated that none of the [facility] facilities have any ICU beds. tt3 20:05 Initiated transfer at [facility] with Tino. Call was transferred to rolly Jameson DIRECTOR SPORTS per Tino's request while being connected with a physician. 20:27 Ray with [facility] called back with a physician to speak with Amilcar Trimble NP, regarding tt3 the transfer request. 20:31 Emory Marin gave admin approval. The accepting physician is Dr. Ibrahim. The pt is tt3 going to [facility] ER. Nurse to call report to . Face sheet and MOT to be faxed to per Emory's request. 20:31 Assisted provider with central line placement. Set up central line tray. Triple lumen ca1 line placed in right femoral. Line placed by Crescencio Ryan MD Placement verified by blood return, Dressed with Tape, Tegaderm, Patient tolerated well. Patient \T\ family education about procedure, CLABSI prevention and S/S of infection? Yes. Time-out/Briefing performed prior to start of procedure? Yes. Was handwashing/sanitizing done immediately prior to procedure? Yes. Was patient positioned to in a way to prevent air embolism? Yes. Was procedure site sterilized? Yes, with chlorhexidine. Was the site allowed to dry? Yes. Was local anesthetic and/or sedation utilized? Yes. During the procedure, did the Practitioner(s) maintain a sterile field? Yes. Were unused ports clamped during insertion? Yes. Was blood aspirated from each lumen? Yes. After the procedure, did the Practitioner(s) clean the site and apply a sterile dressing? Yes. 22:21 Patient transferred, IV remains in place. ca1 Restraints: 20:30 Non-Violent Restraint: Order obtained. Initiated on April 18, 2020 at 20:30 ca1 Restraint Education provided to family/significant other/legally authorized senior sales representative. Actions/Behavior observed: Confused/disoriented, unable to follow instructions, repeated attempts to remove/tamper lines/tubes/IV med devices \T\ wound dressing, Skin integrity: Within defined parameters (based on Integumentary assessment) Restraint status: Side rails up x 4 Soft wrist restraint (Right) Started. Soft wrist restraint (Left) Started. Soft ankle restraint (Right) Started. Soft ankle restraint (Left) Started. 20:50 Non-Violent Restraint: Restraint status: Soft wrist restraint (Left) Discontinued. Soft ca1 ankle restraint (Right) Discontinued. Soft ankle restraint (Left) Discontinued. 20:50 Non-Violent Restraint: Actions/Behavior observed: repeated attempts to remove/tamper ca1 lines/tubes/IV med devices \T\ wound dressing, Restraint status: Soft wrist restraint (Right) Continued. 21:30 Non-Violent Restraint: Skin integrity: Within defined parameters (based on ca1 Integumentary assessment). 22:20 Non-Violent Restraint: Skin integrity: Within defined parameters (based on ca1 Integumentary assessment). Administered Medications: Discontinued: DOBUTamine (250 mg/250mL premix) 5 mcg/kg/min IV at calculated rate continuous; (standard concentration 1000 mcg/mL) 16:32 CANCELLED (Physician Discretion): Kayexalate 30 grams PO once; NG tube pm1 16:37 Drug: NS 0.9% 1000 ml Route: IV; Rate: 1000 ml; Site: right hand; ca1 22:36 Follow up: IV Status: Completed infusion; IV Intake: 1000ml ca1 16:38 Drug: Albuterol 7.5 mg Route: Inhalation; ca1 16:39 Drug: D50W 50 ml Route: IVP; Site: right hand; ca1 17:30 Follow up: Response: No adverse reaction ca1 16:42 Drug: Insulin Regular Human 10 units {Co-Signature: ll1 (Lorenzo Ramirez RN).} Route: IVP; ca1 Site: right hand; 22:36 Follow up: Response: No adverse reaction ca1 16:45 Drug: Calcium Gluconate 1 grams Route: IVPB; Infused Over: 60 mins; Site: right hand; ca1 17:50 Follow up: Response: No adverse reaction; IV Status: Completed infusion; IV Intake: ca1 100ml 17:19 Drug: Rocephin 1 grams Route: IV; Rate: calculated rate; Site: left wrist; ca1 22:37 Follow up: Response: No adverse reaction; IV Status: Completed infusion ca1 17:29 Drug: Sodium Bicarbonate 1 amp Route: IVP; Site: left wrist; ca1 22:36 Follow up: Response: No adverse reaction ca1 17:30 Drug: NS 0.9% 1000 ml Route: IV; Rate: 1000 ml; Site: right hand; ca1 18:30 Follow up: Response: No adverse reaction; IV Status: Completed infusion; IV Intake: ca1 1000ml 18:20 Drug: Lactulose 200 grams Route: MA; ca1 22:36 Follow up: Response: No adverse reaction ca1 18:32 Drug: NS 0.9% 1000 ml Route: IV; Rate: 125 ml/hr; Site: right hand; ca1 22:00 Follow up: Response: No adverse reaction; IV Status: Infusion continued upon transfer ca1 20:44 Drug: DOBUTamine (250 mg/250mL premix) 5 mcg/kg/min Route: IV; Rate: calculated rate; ca1 Site: right femoral; 21:43 Drug: Norepinephrine (4 mg/250 mL D5W) 4 mcg/min Route: IV; Rate: calculated rate; ca1 Site: right femoral; 22:30 Follow up: Response: No adverse reaction; Blood pressure is elevated ca1 22:38 Follow up: IV Status: Infusion continued upon transfer ca1 Intake: 17:50 IV: 100ml; Total: 100ml. ca1 18:30 IV: 1000ml; Total: 1100ml. ca1 22:36 IV: 1000ml; Total: 2100ml. ca1 Outcome: 20:37 ER care complete, transfer ordered by MD. pm1 22:21 Transferred by ground EMS Transfer form completed. X-rays sent w/ patient. Note: to [facility] MANDY Mims 22:21 Condition: stable 22:21 Instructed on the need for transfer. 22:38 Patient left the ED. ca1 Signatures: Dispatcher [employer] EDMS Amilcar Trimble, MARISOL DIRECTOR SPORTS pm1 Shahbaz Blanco jp3 Taryn Nash RN RN ca1 Philip Jama tt3 Lorenzo Ramirez RN ll1 Corrections: (The following items were deleted from the chart) 19:43 19:15 BP 78 / 41; Pulse 75bpm; Resp 15bpm; Spontaneous; Pulse Ox 100% RA; ca1 ca1 19:43 19:30 BP 98 / 43; Pulse 93bpm; Resp 15bpm; Spontaneous; Pulse Ox 100% RA; ca1 ca1 20:32 14:31 No provider procedures requiring assistance completed. ca1 ca1 22:21 22:18 BP 98 / 55; ca1 ca1
--- NOTE | 2020-04-18 20:38 | EDPHYS ---
Physician Documentation [facility] Name: Silvestre Schmid Age: 64 yrs Sex: Male : 1955 Arrival Date: 04/18/2020 Time: 14:20 Bed 15 Private MD: ED Physician Celestine Ty HPI: 04/18 15:01 This 64 yrs old Unknown Male presents to ER via EMS with complaints of Altered Mental pm1 Status. 15:01 The patient presents with decreased mental status. Onset: The symptoms/episode pm1 began/occurred today. Possible causes: stopped taking lactulose for the past 3 days since he had loose stools for the past 3 days. Associated signs and symptoms: Pertinent positives: Diarrhea for 3 days. Patient complained of right flank pain yesterday to his . , Pertinent negatives: vomiting. Patient's baseline: Neuro: alert and fully oriented, Motor: no deficits, Ambulation: walks without assistance, The patient has a previous history of Liver cirrhosis and liver cancer. The patient has not experienced similar symptoms in the past. The patient has not recently seen a physician, [facility], [facility], [facility]. 15:01 Patient with recent increases of his Lasix and spirolactone due to pedal edema. pm1 Historical: - Allergies: 14:31 No Known Allergies; ca1 - Home Meds: 14:31 pantoprazole 40 mg oral TbEC 1 tab once daily [Active]; furosemide 40 mg Oral tab 1.5 ca1 tabs 2 times per day [Active]; spironolactone 25 mg Oral tab 1 tab once daily [Active]; metoprolol tartrate 75 mg Oral tab 1 tab 2 times per day [Active]; lisinopril 5 mg Oral tab 1 tab once daily [Active]; Tresiba FlexTouch U-100 100 unit/mL (3 mL) subcutaneous inpn [Active]; Repatha SureClick 140 mg/mL subcutaneous pnij 1 mL every 2 wks [Active]; aspirin 325 mg Oral tab 1 tab once daily [Active]; Vitamin B 100 Complex [Active]; hydroxyzine HCl 50 mg Oral tab [Active]; - PMHx: 14:31 Cirrhosis; Liver Cancer; Hypertension; Diabetes - IDDM; ca1 - Immunization history:: Adult Immunizations unknown. - Social history:: Smoking status: unknown. ROS: 15:01 Cardiovascular: Negative for chest pain, palpitations, and edema, Respiratory: Negative pm1 for shortness of breath, cough, wheezing, and pleuritic chest pain. 15:01 MS/Extremity: Negative for injury and deformity, Skin: Negative for injury, rash, and discoloration. 15:01 Constitutional: Negative for fever, poor PO intake. 15:01 Abdomen/GI: Positive for diarrhea, Negative for abdominal pain, nausea and vomiting, constipation. 15:01 Back: Positive for flank pain, on the right, yesterday. 15:01 Neuro: Positive for altered mental status. Exam: 15:01 Head/Face: Normocephalic, atraumatic. pm1 15:01 Skin: Warm, dry with normal turgor. Normal color with no rashes, no lesions, and no evidence of cellulitis. MS/ Extremity: Pulses equal, no cyanosis. Neurovascular intact. Full, normal range of motion. 15:01 Constitutional: The patient appears awake, non-diaphoretic, non-toxic, well developed, well hydrated, well groomed, well nourished, obese, Alert to name only 15:01 Neck: External neck: no acute changes, ROM/movement: is normal, is supple, no range of motions limitations. 15:01 Cardiovascular: Exam negative for acute changes, Rate: normal, Rhythm: regular, Pulses: no pulse deficits are appreciated, Edema: is not appreciated. 15:01 Respiratory: Exam negative for acute changes, respiratory distress, shortness of breath. 15:01 Abdomen/GI: Inspection: obese Palpation: abdomen is soft and non-tender, in all quadrants. 15:01 Neuro: Orientation: to person, Motor: moves all fours. Vital Signs: 14:21 BP 102 / 56; Pulse 71; Resp 18 S; Temp 97.3(TE); Pulse Ox 96% on R/A; ca1 15:30 BP 101 / 90; Pulse 72; Resp 16 S; Pulse Ox 100% on R/A; ca1 16:30 BP 63 / 26; Pulse 57; Resp 19 S; Pulse Ox 100% on R/A; ca1 16:45 BP 115 / 39; Pulse 74; Resp 19 S; Pulse Ox 100% on R/A; ca1 17:30 BP 96 / 37; Pulse 84; Resp 15 S; Pulse Ox 100% on R/A; ca1 17:45 BP 103 / 39; Pulse 87; Resp 16 S; Pulse Ox 100% on R/A; ca1 18:00 BP 134 / 95; Pulse 94; Resp 18 S; Pulse Ox 100% on R/A; ca1 18:22 BP 117 / 49; Pulse 92; Resp 20 S; Pulse Ox 100% on R/A; ca1 18:45 BP 125 / 52; Pulse 86; Resp 15 S; Pulse Ox 100% on R/A; ca1 19:15 BP 98 / 43; Pulse 93; Resp 15 S; Pulse Ox 100% on R/A; ca1 19:35 BP 78 / 41; Pulse 75; Resp 15 S; Pulse Ox 100% on R/A; ca1 19:45 BP 81 / 45; Pulse 76; Resp 18 S; Pulse Ox 100% on R/A; ca1 20:00 BP 99 / 72; Pulse 96; Resp 20 S; Pulse Ox 100% on R/A; ca1 20:15 BP 118 / 45; Pulse 89; Resp 19 S; Pulse Ox 100% on R/A; ca1 20:30 BP 99 / 82; Pulse 95; Resp 20 S; Pulse Ox 100% on R/A; ca1 20:34 Weight 113.4 kg (R); ca1 20:37 BP 97 / 58; Pulse 89; Resp 22 S; Pulse Ox 100% on R/A; ca1 20:50 BP 94 / 42; Pulse 100; Resp 21 S; Pulse Ox 100% on R/A; ca1 21:10 BP 99 / 61; Pulse 99; Resp 20 S; Pulse Ox 100% on R/A; ca1 21:48 BP 99 / 39; Pulse 53; Resp 16 S; Pulse Ox 100% on R/A; ca1 22:00 BP 89 / 36; Pulse 81; Resp 16 S; Pulse Ox 100% on R/A; ca1 22:15 BP 98 / 55; Pulse 80; Resp 16 S; Pulse Ox 100% on R/A; ca1 [place] Coma Score: 16:30 Eye Response: to pain(2). Verbal Response: inappropriate words(3). Motor Response: ca1 withdraws from pain(4). Total: 9. 19:00 Eye Response: to pain(2). Verbal Response: inappropriate words(3). Motor Response: ca1 withdraws from pain(4). Total: 9. 22:00 Eye Response: to voice(3). Verbal Response: confused(4). Motor Response: withdraws from ca1 pain(4). Total: 11. Procedures: 19:50 Central Line: the site was prepped with Betadine, in sterile fashion, a triple lumen pm1 catheter was inserted, in the right femoral vein, in 1 attempts. placement was verified, by blood return, the site was dressed with Tegaderm, using sterile technique, the patient tolerated the procedure, well. MDM: 14:44 Patient medically screened. pm1 18:10 Data reviewed: vital signs. Data interpreted: Pulse oximetry: on room air is 100 %. pm1 Interpretation: normal. 19:35 Counseling: I had a detailed discussion with the patient and/or guardian regarding: the pm1 historical points, exam findings, and any diagnostic results supporting the discharge/admit diagnosis, lab results, radiology results, the need to transfer to another facility, [facility] does not immediately have the required specialist, No ICU bed. 19:50 ED course: Discussed with attending preferred initial pressor: recommended dobutamine. pm1 20:33 Physician consultation: ER MD Nicole was contacted at 20:34, regarding regarding pm1 transfer, patient's condition, and will see patient in ED. 21:31 ED course: elevated heart rate without blood pressure improvement with dobutamine, pm1 discussed with attending and changed to norepinephrine. 04/18 14:47 Order name: Flu; Complete Time: 16:08 pm1 04/18 14:47 Order name: AMMONIA; Complete Time: 15:49 pm1 04/18 14:47 Order name: PT-INR; Complete Time: 15:49 pm1 04/18 14:47 Order name: Ptt, Activated; Complete Time: 15:49 pm1 04/18 14:47 Order name: Basic Metabolic Panel; Complete Time: 16:19 pm1 04/18 14:47 Order name: CBC with Diff; Complete Time: 23:01 pm1 04/18 14:47 Order name: Hepatic Function; Complete Time: 16:19 pm1 04/18 14:47 Order name: Lipase; Complete Time: 16:19 pm1 04/18 14:47 Order name: Urine Microscopic Only; Complete Time: 16:59 pm1 04/18 15:57 Order name: Urine Dipstick--Ancillary (enter results); Complete Time: 16:08 bd 04/18 16:32 Order name: ABG pm1 04/18 16:33 Order name: ABG Arterial Blood Gas; Complete Time: 17:09 EDMS 04/18 16:55 Order name: Urine Culture EDMS 04/18 14:47 Order name: CT Head Brain wo Cont; Complete Time: 19:04 pm1 04/18 14:47 Order name: Chest Single View XRAY; Complete Time: 15:49 pm1 04/18 16:36 Order name: Chest Abd Pelvis Wo Con; Complete Time: 19:04 EDMS 04/18 18:18 Order name: SARS-COV-2 RT PCR; Complete Time: 18:20 EDMS 04/18 19:46 Order name: CBC Smear Scan; Complete Time: 23:01 EDMS 04/18 14:47 Order name: IV Saline Lock; Complete Time: 15:13 pm1 04/18 14:47 Order name: Labs collected and sent; Complete Time: 15:12 pm1 04/18 14:47 Order name: Urine Dipstick-Ancillary (obtain specimen); Complete Time: 15:53 pm1 04/18 16:28 Order name: EKG; Complete Time: 16:29 pm1 04/18 16:28 Order name: EKG - Nurse/Tech; Complete Time: 16:38 pm1 04/18 22:35 Order name: Restraint:Non-Violent; Complete Time: 22:36 ca1 Administered Medications: Discontinued: DOBUTamine (250 mg/250mL premix) 5 mcg/kg/min IV at calculated rate continuous; (standard concentration 1000 mcg/mL) 16:32 CANCELLED (Physician Discretion): Kayexalate 30 grams PO once; NG tube pm1 16:37 Drug: NS 0.9% 1000 ml Route: IV; Rate: 1000 ml; Site: right hand; ca1 22:36 Follow up: IV Status: Completed infusion; IV Intake: 1000ml ca1 16:38 Drug: Albuterol 7.5 mg Route: Inhalation; ca1 16:39 Drug: D50W 50 ml Route: IVP; Site: right hand; ca1 17:30 Follow up: Response: No adverse reaction ca1 16:42 Drug: Insulin Regular Human 10 units {Co-Signature: ll1 (Lynsay James RN).} Route: IVP; ca1 Site: right hand; 22:36 Follow up: Response: No adverse reaction ca1 16:45 Drug: Calcium Gluconate 1 grams Route: IVPB; Infused Over: 60 mins; Site: right hand; ca1 17:50 Follow up: Response: No adverse reaction; IV Status: Completed infusion; IV Intake: ca1 100ml 17:19 Drug: Rocephin 1 grams Route: IV; Rate: calculated rate; Site: left wrist; ca1 22:37 Follow up: Response: No adverse reaction; IV Status: Completed infusion ca1 17:29 Drug: Sodium Bicarbonate 1 amp Route: IVP; Site: left wrist; ca1 22:36 Follow up: Response: No adverse reaction ca1 17:30 Drug: NS 0.9% 1000 ml Route: IV; Rate: 1000 ml; Site: right hand; ca1 18:30 Follow up: Response: No adverse reaction; IV Status: Completed infusion; IV Intake: ca1 1000ml 18:20 Drug: Lactulose 200 grams Route: [place]; ca1 22:36 Follow up: Response: No adverse reaction ca1 18:32 Drug: NS 0.9% 1000 ml Route: IV; Rate: 125 ml/hr; Site: right hand; ca1 22:00 Follow up: Response: No adverse reaction; IV Status: Infusion continued upon transfer ca1 20:44 Drug: DOBUTamine (250 mg/250mL premix) 5 mcg/kg/min Route: IV; Rate: calculated rate; ca1 Site: right femoral; 21:43 Drug: Norepinephrine (4 mg/250 mL D5W) 4 mcg/min Route: IV; Rate: calculated rate; ca1 Site: right femoral; 22:30 Follow up: Response: No adverse reaction; Blood pressure is elevated ca1 22:38 Follow up: IV Status: Infusion continued upon transfer ca1 Disposition: 04/19 11:31 Co-signature as Attending Physician, Celestine Ty MD I agree with the assessment and kdr plan of care. Disposition: 04/18/20 20:37 Transfer ordered to Other Acute Care Facility. Diagnosis are Altered mental status, unspecified, Urinary tract infection, site not specified, Acute kidney failure, Dehydration, Diarrhea, unspecified, Encephalopathy, unspecified - hepatic, Acute pancreatitis. - Reason for transfer: Higher level of care. - Accepting physician is [facility]. - Condition is Fair. - Problem is new. - Symptoms have improved. Signatures: Dispatcher [employer] EDMS Celestine Ty MD MD [facility] Amilcar Trimble, [employer] pm1 Taryn Nash RN RN ca1 Lorenzo Ramirez RN ll1 Corrections: (The following items were deleted from the chart) 04/18 15:58 14:47 Abdomen Pelvis W Con+CT.RAD.BRZ ordered. EDMS EDMS 16:32 16:28 NG Tube ordered. pm1 pm1 16:32 16:28 Kayexalate 30 grams PO once; NG tube ordered. pm1 pm1 16:36 15:54 Chest Abdomen Pelvis W Con+CT.RAD.BRZ ordered. EDMS EDMS 17:09 14:48 CORONAVIRUS+MR.LAB.BRZ ordered. EDMS EDMS 22:38 20:37 04/18/2020 20:37 Transfer ordered to Other Acute Care Facility. Diagnosis is ca1 Altered mental status, unspecified; Urinary tract infection, site not specified; Acute kidney failure; Dehydration; Diarrhea, unspecified; Encephalopathy, unspecified - hepatic; Acute pancreatitis. Reason for transfer: Higher level of care. Accepting physician is [facility]. Condition is Fair. Problem is new. Symptoms have improved. pm1
[2020-04-18] MEDS ORDERED: NOREPINEPHRINE 4mg/D5W 250mL 4 MG/250 ML BAG IV ONE (21:48)
[2020-04-18 22:57] VITALS: TEMP 97.3
[2020-04-18 22:58] VITALS: O2SAT 100
[2020-04-18 23:24] VITALS: BP 98/55
== END 2020-04-18 22:38 ==
LOC: ER 14:16
DX: E86.0 Dehydration (principal); K72.90 Hepatic failure, unspecified without coma; N17.9 Acute kidney failure, unspecified; N39.0 Urinary tract infection, site not specified; K85.90 Acute pancreatitis without necrosis or infection, unspecified; R19.7 Diarrhea, unspecified; Z20.828 Contact with and (suspected) exposure to other viral communicable diseases; I10 Essential (primary) hypertension; E11.9 Type 2 diabetes mellitus without complications; Z85.05 Personal history of malignant neoplasm of liver
CPT/HCPCS: 87088; 85025; 87086; 80048; 36415; 82140; 85610; 80076; 85730; 83690; 87804 ×2; 70450; 71250; 74176; 71045; 82805; 51702; 99285; U0003; J0610; J0696; J7030 ×3; J1250; 81003; 81015